=== PATIENT | male | born 2000 | race Caucasian/White ===

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

== ENCOUNTER 2019-09-19 11:30 | Inpatient (IN) | payer BC ==
[~2019-09-19] VITALS: Ht 175.3 cm; Wt 63.5 kg
[~2019-09-19 11:30] MED LIST changes: +OMEP1CAP73 PO; -OMEP20CA4 PO; -OMEP40CA2 PO; +OMEP40CA97 PO
[2019-09-19 12:06] LABS: HEMATOCRIT 45.6 % (42.0-52.0); HEMOGLOBIN 16.5 g/dl (13.5-17.5); MEAN CORPUSCULAR HEMOGLOBIN 29.5 pg (27.0-33.0); MEAN CORPUSCULAR HGB CONC 36.2 g/dl (32.0-36.5); MEAN CORPUSCULAR VOLUME 81.4 fl (80.0-96.0); PLATELET COUNT, AUTOMATED 368 10^3/uL (150-450)
[2019-09-19 12:36] LABS: ACETAMINOPHEN LEVEL < 2.0 UG/ML (10.0-30.0); ALBUMIN 4.7 GM/DL (3.2-5.2); ALT/SGPT 52 U/L (12-78); BILIRUBIN,DIRECT 0.4 MG/DL (0.0-0.2); BILIRUBIN,TOTAL 1.9 MG/DL (0.2-1.0); BLOOD UREA NITROGEN 15 MG/DL (7-18); CALCIUM LEVEL 9.7 MG/DL (8.5-10.1); CARBON DIOXIDE LEVEL 25 MEQ/L (21-32); CHLORIDE LEVEL 106 MEQ/L (98-107); CREATININE FOR GFR 1.39 MG/DL (0.70-1.30); ETHYL ALCOHOL (ETHANOL) < 0.003 % (0.000-0.010); GLUCOSE, FASTING 154 MG/DL (70-100); POTASSIUM SERUM 3.4 MEQ/L (3.5-5.1); SALICYLATE LEVEL < 1.7 MG/DL (5.0-30.0); SODIUM LEVEL 139 MEQ/L (136-145); TOTAL PROTEIN 7.9 GM/DL (6.4-8.2)
[2019-09-19 12:37] LABS: AMPHETAMINES LEVEL URINE NEGATIVE (NEGATIVE); BARBITURATES URINE NEGATIVE (NEGATIVE); BENZODIAZEPINES URINE NEGATIVE (NEGATIVE); CANNABINOIDS URINE NEGATIVE (NEGATIVE); COCAINE METABOLITE URINE NEGATIVE (NEGATIVE); METHADONE URINE NEGATIVE (NEGATIVE); OPIATES URINE NEGATIVE (NEGATIVE); PHENCYCLIDINE URINE NEGATIVE (NEGATIVE)
[2019-09-19 15:08] LABS: CPK CREATINE PHOSPHOKINASE 525 U/L (39-308)
[2019-09-19] MEDS ORDERED: MAALOX 30 ML SUSP *UDC PO PRN (16:45)
[2019-09-19] MEDS ORDERED: MOM 30ML SUSPENSION UDC PO PRN (16:45)
[2019-09-19] MEDS ORDERED: ACETAMINOPHEN TAB 650MG DOSE (2X325MG) PO PRN (16:45)
[2019-09-19 17:30] VITALS: BP 144/79
[2019-09-19] MEDS: LORazepam 0.5 MG TAB PO PRN (19:57)
[2019-09-20 06:22] VITALS: BP 108/57
[2019-09-20] MEDS ORDERED: SODIUM CHLORIDE NASAL 0.65% SPRAY BTL (OCEAN) PRN (11:30)
--- NOTE | 2019-09-20 11:36 | MHHPEPDOC ---
[facility] History & Physical History and Physical DATE OF ADMISSION: September 19, 2019 at 17:23 New Patient James Medrano MRN: N/A Date of : N/A Date of Service: 09/20/2019 Chief Complaint "I have things going on." History of Present Illness The patient, a 19-year-old man presents to [facility] after acting fairly bizarre and confused at his home manically talking at length. His mother brought him in. He was noted to be aggressive and manic and was admitted. The patient is met with. He is still quite manic and hyperverbal although amenable to trying some medications. He denies any substance use prior and rarely admits to his previous substance use. He feels that his substance use is continuing to be a problem even though he has stopped taking them. He is difficult to interview and the majority of his information is extracted from previous psychosocial. Review Of Systems Unable to obtain due to mental status. Past Psychiatric History He has a history of reported drug-induced psychosis in the past, last admitted several months ago. He had been tried on Invega, patient reports that it made him overly sedated. It is not connected with mental health at this time on no current mental health medications. No notable history of suicide attempts. Allergies Please see below. Family Psychiatric History Reports having a family history of substance abuse in the past. Social History Patient was born and raised in [place], moved to [place] at age 2 to be away from biologic father who was into drugs. Mom remarried, then . Currently lives with mother. Had graduated high school, had dropped out of college. No notable history of legal problems. He had been previously employed at [employer]. Substance Abuse History Has a history of hallucinogen stimulant use in the past, denies it recently. Negative tox screen on presentation. Medical History Patient has no significant past medical history. Mental Status Examination General: Well dressed with good hygiene Speech: hyperverbal Thought processes: Tangential MSK: Smooth and coordinated gait, no signs of tremors or involuntary orofacial movements Thought content: Bizarre Abstract reasoning, and computation: Mildly impaired Description of associations: [employer] Description of abnormal or psychotic thoughts: Has reported auditory hallucinations to nurses. Judgment: Limited Insight: Limited Orientation: Alert and orientated 3 Cognition: Grossly normal Recent and remote memory: Intact Attention span and concentration: Impaired secondary to thought process. Fund of knowledge: Adequate Mood: "okay" Affect: Euphoric and hyperverbal Diagnoses Unspecified bipolar disorder Potentially schizoaffective versus schizophrenia Stimulant use disorder, unspecified Hallucinogen use disorder, unspecified Assessment and Plan Unspecified bipolar disorder: Start patient on Abilify 5 mg with as needed Haldol and Ativan for agitation. The risks, benefits as well as common side effects as well as alternative treatments (including non-treatment) were discussed with the patient both in general and for their particular case. The patient selected this option out of a range. Stimulant/hallucinogen use disorder: Unclear if clinically relevant. Disposition Patient will need to be retained on an involuntary admission as he is still quite distorted and manic. Problem List Altered thoughts and perception. Initial Treatment Plan 1. Patient was admitted on a legal status. 2. Complete history was obtained. 3. With patients permission, family will be contacted and database will be expanded. 4. Patients medication regimen will be reviewed and changed accordingly. 5. Patient will be provided with protected environment. 6. Patient will be treated with individual, group, and milieu therapies. 7. Patient will receive supportive psych-education. 8. Discharge planning will commence immediately. 9. Outpatient follow-up treatment will be strongly recommended. 10. The initial treatment plan will focus initially on: Estimated Length Of Stay 4 days. Time Spent 70 minutes with greater than 50% of time spent on counseling/coordination of care Saturday Vital Signs Vital Signs Date Time Temp Pulse Resp B/P (MAP) Pulse Ox O2 Delivery O2 Flow Rate FiO2 09/20/19 06:22 97.5 66 14 108/57 (74) 100 Room Air Laboratory Data 24H Labs Laboratory Tests 2 09/19/19 11:53: Nucleated Red Blood Cells % (auto) 0.0, Anion Gap 8, Calcium Level 9.7, Total Bilirubin 1.9H, Direct Bilirubin 0.4H, Aspartate Amino Transf (AST/SGOT) 31, Alanine Aminotransferase (ALT/SGPT) 52, Alkaline Phosphatase 84, Total Creatine Kinase 525H, Total Protein 7.9, Albumin 4.7, Albumin/Globulin Ratio 1.47, T hyroid Stimulating Hormone (TSH) 2.400, Salicylates Level < 1.7L, Acetaminophen Level < 2.0L, Ethyl Alcohol Level < 0.003 09/19/19 12:00: Urine Opiates Screen NEGATIVE, Urine Methadone Screen NEGATIVE, Urine Barbiturates Screen NEGATIVE, Urine Phencyclidine Screen NEGATIVE, Urine Amphetamines Screen NEGATIVE, Urine Benzodiazepines Screen NEGATIVE, Urine Cocaine Metabolite Screen NEGATIVE, Urine Cannabinoids Screen NEGATIVE CBC/BMP Laboratory Tests 09/19/19 11:53 Medications No Active Prescriptions or Reported Meds Allergies Coded Allergies: Penicillins (Verified Allergy, Unknown, rash, 09/19/19) MARJ MEEKS DO September 20, 2019 11:36
[2019-09-20 12:11] LABS: HEMATOCRIT 43.9 % (42.0-52.0); HEMOGLOBIN 15.7 g/dl (13.5-17.5); MEAN CORPUSCULAR HEMOGLOBIN 29.7 pg (27.0-33.0); MEAN CORPUSCULAR HGB CONC 35.8 g/dl (32.0-36.5); PLATELET COUNT, AUTOMATED 319 10^3/uL (150-450); RED BLOOD COUNT 5.29 10^6/uL (4.30-6.10)
--- NOTE | 2019-09-20 12:30 | CR.PDOC ---
General Date of Consultation: September 20, 2019 Referring Provider: MARJ MEEKS DO Consultation REASON FOR CONSULTATION/CHIEF COMPLAINT: medical management HISTORY OF PRESENT ILLNESS: Patient is a 19-yoM with PMH pericarditis, seasonal allergies, deviated septum, status post rhinoplasty, presenting with SI. He reports possible diagnosis of ADHD in the past, without medication treatment. Hospitalist team consulted for medical management. Today, he does report slight headache with vision changes. He wore opticals in the past, however, has not had a follow-up with optometry. He does report chest pain and shortness of breath upon anxiety attack when first admitted, which has subsequently resolved. He also reports nausea without vomiting, decreased by mouth intake. Last meal was last night. He denies any fevers, chills, cough, abdominal pain, issues with voiding or stooling, no dysuria, no new rashes. ROS: 10 point review systems negative except per above. PMH: See above. PSH: See above, rhinoplasty Family history: Reviewed and noncontributory. Social history: former smoker,denies ETOH, or ilicits Medications: Reviewed Allergies: pcn (pt not aware, reports NKDA) PHYSICAL EXAMINATION: VITAL SIGNS: Please see below. GENERAL: No distress HEENT: Normocephalic, atraumatic, moist mucous membranes NECK: Supple CARDIOVASCULAR EXAMINATION: S1, S2, no murmurs RESPIRATORY EXAMINATION: CTAB ABDOMINAL EXAMINATION: Soft, nontender, nondistended, positive bowel sounds EXTREMITIES: no edema SKIN: No rash NEUROLOGICAL EXAMINATION: awake PSYCHIATRIC EXAMINATION: Calm and cooperative, appears anxious Assessment and plan: Patient is a 19-yoM with PMH pericarditis, seasonal allergies, deviated septum, status post rhinoplasty, presenting with SI, no HI. #SI/mood disorder: Well defer to primary team on management. #Vision changes, recommendations for outpatient follow-up to optometry versus ophthalmology, likely contributing to headache, okay to continue Tylenol when necessary for now. #Allergies, with a history of deviated septum, status post rhinoplasty: Well continue home cetirizine 10 mg daily, [place] nasal spray when necessary #MARCO A: likely secondary to dehydration, encourage by mouth intake #hypokalemia: likely secondary to dehydration, encourage by mouth intake, will monitor, obtain repeat BMP and a niece in level for evaluation #leukocytosis: Likely secondary to stress reaction, unlikely infection, well repeat and monitor DVT PPx: Frequent ambulation Full code. Thank you for the consult. Vital Signs/I&O Vital Signs Date Time Temp Pulse Resp B/P (MAP) Pulse Ox O2 Delivery O2 Flow Rate FiO2 09/20/19 06:22 97.5 66 14 108/57 (74) 100 Room Air Laboratory Data Labs 24H Laboratory Tests 2 09/19/19 11:53: Nucleated Red Blood Cells % (auto) 0.0, Anion Gap 8, Calcium Level 9.7, Total Bilirubin 1.9H, Direct Bilirubin 0.4H, Aspartate Amino Transf (AST/SGOT) 31, Alanine Aminotransferase (ALT/SGPT) 52, Alkaline Phosphatase 84, Total Creatine Kinase 525H, Total Protein 7.9, Albumin 4.7, Albumin/Globulin Ratio 1.47, Thyroid Stimulating Hormone (TSH) 2.400, Salicylates Level < 1.7L, Acetaminophen Level < 2.0L, Ethyl Alcohol Level < 0.003 09/19/19 12:00: Urine Opiates Screen NEGATIVE, Urine Methadone Screen NEGATIVE, Urine Barbiturates Screen NEGATIVE, Urine Phencyclidine Screen NEGATIVE, Urine Amphetamines Screen NEGATIVE, Urine Benzodiazepines Screen NEGATIVE, Urine Cocaine Metabolite Screen NEGATIVE, Urine Cannabinoids Screen NEGATIVE CBC/BMP Laboratory Tests 09/19/19 11:53 Allergies Coded Allergies: Penicillins (Verified Allergy, Unknown, rash, 09/19/19) Home Medications No Active Prescriptions or Reported Meds SHASHANK GONCALVES MD September 20, 2019 11:19
[2019-09-20 12:32] LABS: BLOOD UREA NITROGEN 12 MG/DL (7-18); CALCIUM LEVEL 8.9 MG/DL (8.5-10.1); CARBON DIOXIDE LEVEL 26 MEQ/L (21-32); CHLORIDE LEVEL 105 MEQ/L (98-107); CREATININE FOR GFR 0.95 MG/DL (0.70-1.30); GLUCOSE, FASTING 98 MG/DL (70-100); MAGNESIUM LEVEL 2.3 MG/DL (1.8-2.4); SODIUM LEVEL 139 MEQ/L (136-145)
[2019-09-20] MEDS: LORazepam 0.5 MG TAB PO PRN ×2 (12:56→18:24)
[2019-09-20] MEDS: CETIRIZINE (ZyrTEC) 10 MG TAB PO SCH (12:56)
[2019-09-20 15:35] VITALS: BP 117/56
[2019-09-20] MEDS: haloperidoL 5 MG TAB PO PRN (18:56)
[2019-09-20] MEDS: traZODone 50 MG TAB PO PRN (21:23)
[2019-09-21 06:32] VITALS: BP 122/60
[2019-09-21] MEDS: CETIRIZINE (ZyrTEC) 10 MG TAB PO SCH (08:08)
[2019-09-21] MEDS: haloperidoL 5 MG TAB PO PRN (08:09)
--- NOTE | 2019-09-21 09:52 | MHIPNPDOC ---
[facility] Progress Note Progress Note Inpatient Progress Note James Medrano MRN: N/A Date of : N/A Date of Service: 09/21/2019 History of Present Illness The patient, a 19-year-old man presents to [facility] after acting fairly bizarre and confused at his home manically talking at length. His mother brought him in. He was noted to be aggressive and manic and was admitted. The patient is met with. He is still quite manic and hyperverbal although amenable to trying some medications. He denies any substance use prior and rarely admits to his previous substance use. He feels that his substance use is continuing to be a problem even though he has stopped taking them. He is difficult to interview and the majority of his information is extracted from previous psychosocial. Interval History The patient is unable to be met with today, as he was sedated from taking Haldol this morning due to increased anxiety. He is notably had increased anxiety, but no major behavioral problems. Review Of Systems Patient sedated. Psychotherapy None on this visit. Vital Signs Reviewed. Mental Status Examination Patient is too sedated to meet. Diagnoses Unspecified bipolar disorder Potentially schizoaffective versus schizophrenia Stimulant use disorder, unspecified Hallucinogen use disorder, unspecified Assessment and Plan Unspecified bipolar disorder: Continue Abilify 5 mg nightly. The risks, benefits as well as common side effects as well as alternative treatments (including non-treatment) were discussed with the patient both in general and for their particular case. The patient selected this option out of a range. Stimulant/hallucinogen use disorder: Unclear if clinically relevant. Disposition Patient will need further inpatient admission in order to treat his severely impairing psychosis and pauline. Time Spent 15 minutes Saturday Vital Signs Vital Signs Date Time Temp Pulse Resp B/P (MAP) Pulse Ox O2 Delivery O2 Flow Rate FiO2 09/21/19 06:32 98.3 75 12 122/60 (80) 96 Room Air Laboratory Data 24H Labs Laboratory Tests 2 09/20/19 11:53: Nucleated Red Blood Cells % (auto) 0.0, Anion Gap 8, Calcium Level 8.9, Magnesium Level 2.3 CBC/BMP Laboratory Tests 09/20/19 11:53 Current Medications Current Medications Medications (Trade) Dose Ordered Sig/Rani Route PRN Reason Start Time Stop Time Status Last Admin Dose Admin Acetaminophen (Tylenol Tab) 650 mg Q6HP PRN PO HEADACHE or DISCOMFORT 09/19/19 16:45 Al Hydrox/Mg Hydrox/Simethicone (Mylanta) 30 ml Q4HP PRN PO HEARTBURN/INDIGESTION 09/19/19 16:45 Aripiprazole (AbiLIFY) 5 mg QHS PO 09/20/19 21:00 09/20/19 21:23 Cetirizine HCl (ZyrTEC) 10 mg DAILY PO 09/20/19 09:00 09/21/19 08:08 Haloperidol (Haldol) 5 mg Q4HP PRN PO AGITATION 09/19/19 18:45 09/21/19 08:09 Home Med (Med Rec Complete!) ASDIRECTED XX 09/19/19 14:00 09/19/19 14:06 DC Lorazepam (Ativan) 0.5 mg Q4HP PRN PO ANXIETY 09/19/19 18:45 09/20/19 18:24 Magnesium Hydroxide (Milk Of Magnesia) 30 ml DAILYPRN PRN PO CONSTIPATION 09/19/19 16:45 Sodium Chloride ([place] Nasal [place]) 2 spray Q2HP PRN NA NASAL DRYNESS 09/20/19 11:30 Trazodone HCl (Desyrel) 50 mg QHSP PRN PO INSOMNIA 09/19/19 16:45 09/20/19 21:23 Allergies Coded Allergies: Penicillins (Verified Allergy, Unknown, rash, 09/19/19) MARJ MEEKS DO September 21, 2019 09:52
--- NOTE | 2019-09-21 10:34 | IPNPDOC ---
Date Seen The patient was seen on 09/21/19. Progress Note SUBJECTIVE: No o/n issues, vision and allergies controlled. OBJECTIVE PHYSICAL EXAMINATION: PHYSICAL EXAMINATION: VITAL SIGNS: Please see below. GENERAL: No distress HEENT: Normocephalic, atraumatic, moist mucous membranes NECK: Supple CARDIOVASCULAR EXAMINATION: S1, S2, no murmurs RESPIRATORY EXAMINATION: CTAB ABDOMINAL EXAMINATION: Soft, nontender, nondistended, positive bowel sounds EXTREMITIES: no edema SKIN: No rash NEUROLOGICAL EXAMINATION: awake PSYCHIATRIC EXAMINATION: Calm and cooperative, appears anxious Assessment and plan: Patient is a 19-yoM with PMH pericarditis, seasonal allergies, deviated septum, status post rhinoplasty, presenting with SI, no HI. #SI/mood disorder: Well defer to primary team on management. #Vision changes, recommendations for outpatient follow-up to optometry versus ophthalmology, likely contributing to headache, okay to continue Tylenol when necessary for now. #Allergies, with a history of deviated septum, status post rhinoplasty: Well continue home cetirizine 10 mg daily, [place] nasal spray when necessary #MARCO A: likely secondary to dehydration, encourage by mouth intake -resolved #hypokalemia: likely secondary to dehydration, encourage by mouth intake, will monitor, obtain repeat BMP and a niece in level for evaluation -resolved #leukocytosis: Likely secondary to stress reaction, unlikely infection, well repeat and monitor -resolved DVT PPx: Frequent ambulation Full code. Will sign off at this time, please reconsult if issues arise. VS, I&O, 24H, Fishbone Vital Signs/I&O Vital Signs Date Time Temp Pulse Resp B/P (MAP) Pulse Ox O2 Delivery O2 Flow Rate FiO2 09/21/19 06:32 98.3 75 12 122/60 (80) 96 Room Air Laboratory Data 24H LABS Laboratory Tests 2 09/20/19 11:53: Nucleated Red Blood Cells % (auto) 0.0, Anion Gap 8, Calcium Level 8.9, Magnesium Level 2.3 CBC/BMP Laboratory Tests 09/20/19 11:53 SHASHANK GONCALVES MD September 21, 2019 10:34
[2019-09-21 16:42] VITALS: BP 114/63
[2019-09-21] MEDS: traZODone 50 MG TAB PO PRN (21:18)
[2019-09-22 06:25] VITALS: BP 132/61
[2019-09-22] MEDS: CETIRIZINE (ZyrTEC) 10 MG TAB PO SCH (08:11)
[2019-09-22] MEDS: haloperidoL 5 MG TAB PO PRN ×2 (08:11→20:40)
--- NOTE | 2019-09-22 09:23 | MHIPNPDOC ---
[facility] Progress Note Progress Note Inpatient Progress Note James Medrano MRN: N/A Date of : N/A Date of Service: 09/22/2019 History of Present Illness The patient, a 19-year-old man presents to [facility] after acting fairly bizarre and confused at his home manically talking at length. His mother brought him in. He was noted to be aggressive and manic and was admitted. The patient is met with. He is still quite manic and hyperverbal although am enable to trying some medications. He denies any substance use prior and rarely admits to his previous substance use. He feels that his substance use is continuing to be a problem even though he has stopped taking them. He is difficult to interview and the majority of his information is extracted from previous psychosocial. Interval History Patient is met with today. He reports he is doing better, but has been sedated. Yesterday, he stated he took Haldol due to his increasing anxiety. He reports his thoughts become racing and that he cannot even describe them. He reports that he is tolerating the Abilify well, but still has difficulty controlling his moods and his fears. Review Of Systems Reports no physical symptoms at this time. Psychotherapy None on this visit. Vital Signs Reviewed. Mental Status Examination Patient is too sedated to meet. General: Well dressed with good hygiene Speech: More fluid. Thought processes: More linear. MSK: Smooth and coordinated gait, no signs of tremors or involuntary orofacial movements Thought content: Less paranoid. Abstract reasoning, and computation: Intact Description of associations: Intact Description of abnormal or psychotic thoughts: Denies any suicidal or homicidal ideation. Denies any auditory or visual hallucinations. Does not appear to be responding to internal stimuli. Does not appear to be endorsing any bizarre or paranoid ideation. Judgment: Improved. Insight: Improved. Orientation: Alert and orientated 3 Cognition: Grossly normal Recent and remote memory: Intact Attention span and concentration: Intact Fund of knowledge: Adequate Mood: "okay" Affect: More euthymic Diagnoses Unspecified bipolar disorder Potentially schizoaffective versus schizophrenia Stimulant use disorder, unspecified Hallucinogen use disorder, unspecified Assessment and Plan Unspecified bipolar disorder: Increase Abilify to 10 mg nightly. Stimulant/hallucinogen use disorder: Unclear if clinically relevant. Disposition Patient will need further inpatient admission in order to treat his severely impairing psychosis and pauline. Time Spent 15 minutes. Saturday Vital Signs Vital Signs Date Time Temp Pulse Resp B/P (MAP) Pulse Ox O2 Delivery O2 Flow Rate FiO2 09/22/19 06:25 97.9 95 12 132/61 (84) Room Air 09/21/19 06:32 96 Current Medications Current Medications Medications (Trade) Dose Ordered Sig/Rani Route PRN Reason Start Time Stop Time Status Last Admin Dose Admin Acetaminophen (Tylenol Tab) 650 mg Q6HP PRN PO HEADACHE or DISCOMFORT 09/19/19 16:45 09/21/19 16:21 Al Hydrox/Mg Hydrox/Simethicone (Mylanta) 30 ml Q4HP PRN PO HEARTBURN/INDIGESTION 09/19/19 16:45 Aripiprazole (AbiLIFY) 5 mg QHS PO 09/20/19 21:00 09/21/19 21:17 Cetirizine HCl (ZyrTEC) 10 mg DAILY PO 09/20/19 09:00 09/22/19 08:11 Haloperidol (Haldol) 5 mg Q4HP PRN PO AGITATION 09/19/19 18:45 09/22/19 08:11 Home Med (Med Rec Complete!) ASDIRECTED XX 09/19/19 14:00 09/19/19 14:06 DC Lorazepam (Ativan) 0.5 mg Q4HP PRN PO ANXIETY 09/19/19 18:45 09/20/19 18:24 Magnesium Hydroxide (Milk Of Magnesia) 30 ml DAILYPRN PRN PO CONSTIPATION 09/19/19 16:45 Sodium Chloride ([place] Nasal [place]) 2 spray Q2HP PRN NA NASAL DRYNESS 09/20/19 11:30 Trazodone HCl (Desyrel) 50 mg QHSP PRN PO INSOMNIA 09/19/19 16:45 09/21/19 21:18 Allergies Coded Allergies: Penicillins (Verified Allergy, Unknown, rash, 09/19/19) MARJ MEEKS DO September 22, 2019 09:23
[2019-09-22 16:04] VITALS: BP 114/59
[2019-09-22] MEDS: ARIPiprazole 10 MG TAB PO SCH (20:24)
[2019-09-22] MEDS: traZODone 50 MG TAB PO PRN (21:23)
[2019-09-23 06:30] VITALS: BP 124/59
[2019-09-23] MEDS: CETIRIZINE (ZyrTEC) 10 MG TAB PO SCH (08:16)
--- NOTE | 2019-09-23 10:00 | MHIPNPDOC ---
[facility] Progress Note Progress Note Inpatient Progress Note James Medrano MRN: N/A Date of : N/A Date of Service: 09/23/2019 History of Present Illness The patient, a 19-year-old man presents to [facility] after acting fairly bizarre and confused at his home manically talking at length. His mother brought him in. He was noted to be aggressive and manic and was admitted. The patient is met with. He is still quite manic and hyperverbal although a menable to trying some medications. He denies any substance use prior and rarely admits to his previous substance use. He feels that his substance use is continuing to be a problem even though he has stopped taking them. He is difficult to interview and the majority of his information is extracted from previous psychosocial. Interval History The patient is met with today. He is making good progress and had been given his Abilify shot. He reports that he is doing much better on the Abilify 10 or needing some Haldol from time to time. He reports feeling much improved and has been engaging well on treatment. He has had no major behavioral problems and generally has been making progress. Information had been gathered from a source reporting a history of cardiovascular problems in the past. However, the patient reports that he has not had any particular problems other than some unspecified problems when he was younger. Review Of Systems General: Denies fever or appetite changes Cardiovascular: Denies Chest pain or palpations GI: Denies Nausea, vomiting, or bowel changes Respiratory: Denies shortness of breath or cough Neuro: Denies dizziness, tremors Derm: Denies any rashes or pruritus : Denies any dysuria or urinary problems MSK: Denies any muscle tightness or stiffness HEENT: Denies any vision changes or headaches Psychotherapy None on this visit. Vital Signs Reviewed. Mental Status Examination General: Well dressed with good hygiene Speech: More fluid. Thought processes: Linear. MSK: Smooth and coordinated gait, no signs of tremors or involuntary orofacial movements Thought content: Future oriented. Abstract reasoning, and computation: Intact Description of associations: Intact Description of abnormal or psychotic thoughts: Denies any suicidal or homicidal ideation. Denies any auditory or visual hallucinations. Does not appear to be responding to internal stimuli. Does not appear to be endorsing any bizarre or paranoid ideation. Judgment: Improved. Insight: Improved. Orientation: Alert and orientated 3 Cognition: Grossly normal Recent and remote memory: Intact Attention span and concentration: Intact Fund of knowledge: Adequate Mood: "okay" Affect: More euthymic Diagnoses Unspecified bipolar disorder Potentially schizoaffective versus schizophrenia Stimulant use disorder, unspecified Hallucinogen use disorder, unspecified Assessment and Plan Unspecified bipolar disorder: Continue Abilify 10 mg nightly. Abilify Maintena 400 mg given. Stimulant/hallucinogen use disorder: Unclear if clinically relevant. Disposition Discharge tomorrow if patient continues to improve and demonstrates no significant problems. Time Spent 15 minutes. Saturday Vital Signs Vital Signs Date Time Temp Pulse Resp B/P (MAP) Pulse Ox O2 Delivery O2 Flow Rate FiO2 09/23/19 06:30 98.8 88 12 124/59 (80) 09/22/19 06:25 Room Air 09/21/19 06:32 96 Current Medications Current Medications Medications (Trade) Dose Ordered Sig/Rani Route PRN Reason Start Time Stop Time Status Last Admin Dose Admin Acetaminophen (Tylenol Tab) 650 mg Q6HP PRN PO HEADACHE or DISCOMFORT 09/19/19 16:45 09/21/19 16:21 Al Hydrox/Mg Hydrox/Simethicone (Mylanta) 30 ml Q4HP PRN PO HEARTBURN/INDIGESTION 09/19/19 16:45 Aripiprazole (AbiLIFY) 5 mg QHS PO 09/20/19 21:00 09/22/19 11:07 DC 09/21/19 21:17 Aripiprazole (AbiLIFY) 10 mg QHS PO 09/22/19 21:00 09/22/19 20:24 Cetirizine HCl (ZyrTEC) 10 mg DAILY PO 09/20/19 09:00 09/23/19 08:16 Haloperidol (Haldol) 5 mg Q4HP PRN PO AGITATION 09/19/19 18:45 09/22/19 20:40 Home Med (Med Rec Complete!) ASDIRECTED XX 09/19/19 14:00 09/19/19 14:06 DC Lorazepam (Ativan) 0.5 mg Q4HP PRN PO ANXIETY 09/19/19 18:45 09/20/19 18:24 Magnesium Hydroxide (Milk Of Magnesia) 30 ml DAILYPRN PRN PO CONSTIPATION 09/19/19 16:45 Sodium Chloride ([place] Nasal [place]) 2 spray Q2HP PRN NA NASAL DRYNESS 09/20/19 11:30 Trazodone HCl (Desyrel) 50 mg QHSP PRN PO INSOMNIA 09/19/19 16:45 09/22/19 21:23 Allergies Coded Allergies: Penicillins (Verified Allergy, Unknown, rash, 09/19/19) MARJ MEEKS DO September 23, 2019 10:00
[2019-09-23] MEDS ORDERED: VARENICLINE 0.5 MG TABLET PO ONE (11:00)
[2019-09-23] MEDS: haloperidoL 5 MG TAB PO PRN (11:40)
[2019-09-23] MEDS: PILL CUTTER 1 EACH XX PRN (11:40)
[2019-09-23] MEDS ORDERED: ARIPiprazole MONOHYDRATE 400 MG INJ (ABILIFY) IM ONE (13:00)
[2019-09-23 16:04] VITALS: BP 117/58
[2019-09-23] MEDS: traZODone 50 MG TAB PO PRN (20:15)
[2019-09-23] MEDS: ARIPiprazole 10 MG TAB PO SCH (20:15)
[2019-09-24] MEDS: LORazepam 0.5 MG TAB PO PRN (00:48)
[2019-09-24 06:37] VITALS: BP 129/82
[2019-09-24] MEDS: CETIRIZINE (ZyrTEC) 10 MG TAB PO SCH (08:08)
[2019-09-24] MEDS ORDERED: VARENICLINE 0.5 MG TABLET PO SCH (09:00)
--- NOTE | 2019-09-24 09:54 | MHDSPDOC ---
[facility] Discharge Summary Discharge Summary DATE OF ADMISSION: September 19, 2019 at 17:23 DATE OF DISCHARGE: 09/24/2019 Discharge Jamse Medrano MRN: N/A Date of : N/A Date of Service: 09/24/2019 Diagnoses Unspecified bipolar disorder Potentially schizoaffective versus schizophrenia Stimulant use disorder, unspecified Hallucinogen use disorder, unspecified History of Present Illness The patient, a 19-year-old man presents to [facility] after acting fairly bizarre and confused at his home manically talking at length. His mother brought him in. He was noted to be aggressive and manic and was admitted. The patient is met with. He is still quite manic and hyperverbal although amenable to trying some medications. He denies any substance use prior and rarely admits to his previous substance use. He feels that his substance use is continuing to be a problem even though he has stopped taking them. He is difficult to interview and the majority of his information is extracted from previous psychosocial. Consultants Involved Hospitalist/PCP screening Treatment and Progress On The Unit The patient was admitted to the inpatient mental health unit. He was initially tried on Abilify 5 mg, increased to 10 mg of the positive effects. He needed some PRN Haldol and Ativan at times for anxiety, but rapidly made progress. He requested Chantix to help with smoking cessation and tolerated his first dose well without any problems. He did not have much aggression or other problems other than his initial manic problems in which he was quite intrusive when he first arrived. These arrived well and he became friendly and amenable and much more socially appropriate. He was given Abilify 400 mg and a discharge plan was created. Discharge Assessment 19-year-old man with a history of drug use, however, no recent drug use prior to his psychotic episode presents likely demonstrating signs of bipolar disorder. He is treated with an appropriate agent and put on a long-acting injectable. His cholesterol is normal and his EKG is normal as well on discharge. The patient at the time of discharge did not meet criteria for involuntary admission/extension due to having a normal mental status exam, fair insight into the situation, They are engaged in the discharge process, as well as being friendly and amenable in behavioral control and havent been engaging in any observed concerning behavior or ideation recently. They decline voluntary extension/admission at this time and must be discharged in good rafaela, as Im unable to make a case for holding the patient against their will. They may have historical risk factors of admissions and other interactions with psychiatry however, those are not modifiable from a clinical perspective. The patient will need to be discharged in good rafaela. on discharge Mental Status Examination General: Well dressed with good hygiene Speech: Spontaneous and fluid Thought processes: Linear and logical MSK: Smooth and coordinated gait, no signs of tremors or involuntary orofacial m ovements Thought content: Future orientated Abstract reasoning, and computation: Intact Description of associations: Intact Description of abnormal or psychotic thoughts: Denies any suicidal or homicidal ideation. Denies any auditory or visual hallucinations. Does not appear to be responding to internal stimuli. Does not appear to be endorsing any bizarre or paranoid ideation. Judgment: fair Insight: fair Orientation: Alert and orientated 3 Cognition: Grossly normal Recent and remote memory: Intact Attention span and concentration: Intact Fund of knowledge: Adequate Mood: "okay" Affect: Euthymic with a full range Follow Up The social work team worked during the predischarge meeting in order to evaluate for further issues of lethality address them fully before discharge. They worked on safety planning with the patient's family members in order to ensure that the patient will have a safe and effective discharge. Time Spent The amount of time spent in the coordination of care for this patient was approximately 45 minutes. Vital Signs/I&Os Vital Signs Date Time Temp Pulse Resp B/P (MAP) Pulse Ox O2 Delivery O2 Flow Rate FiO2 09/24/19 06:37 96.9 87 12 129/82 (98) 09/22/19 06:25 Room Air 09/21/19 06:32 96 Laboratory Data Labs 24H Laboratory Tests 2 09/24/19 09:31: Medications Scheduled Aripiprazole (Abilify) 10 Mg Tablet, 10 MG PO QHS for mood for 7 Days, #7 Aripiprazole (Abilify Maintena) 400 Mg Suser.syr, 400 MG IM Q4WKS for thought for 28 Days, #400 injection next on 10/24/19 Varenicline (Chantix) 0.5 Mg Tablet, 0.5 MG PO DAILY for tobacco for 7 Days, #7 Allergies Coded Allergies: Penicillins (Verified Allergy, Unknown, rash, 09/19/19) MARJ MEEKS DO September 24, 2019 09:54
[2019-09-24] MEDS ORDERED: ABIL1INJ2 IM (10:17)
[2019-09-24] MEDS ORDERED: VARE05TA PO (10:17)
[2019-09-24] MEDS ORDERED: ABIL10TA9 PO (10:17)
[2019-09-24 10:27] LABS: CHOLESTEROL RISK RATIO 3.268 (<5)
[2019-09-24] MEDS: haloperidoL 5 MG TAB PO PRN (12:37)
[2019-09-24] MEDS: PILL CUTTER 1 EACH XX PRN (12:37)
--- NOTE | 2019-09-24 18:17 | ECGEPIP ---
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
== END 2019-09-24 13:50 | disposition home or self-care (01) | DRG 753 ==
LOC: M ED 11:30 → M PSY 17:23
PROVIDERS: ADMIT Psychiatry & Neurology Addiction Medicine; ATTEND Psychiatry & Neurology Addiction Medicine
DX: F31.9 Bipolar disorder, unspecified (principal); N17.9 Acute kidney failure, unspecified; F25.9 Schizoaffective disorder, unspecified; F16.10 Hallucinogen abuse, uncomplicated; F15.10 Other stimulant abuse, uncomplicated; R51 Headache; H53.9 Unspecified visual disturbance; E87.6 Hypokalemia; E86.0 Dehydration; Z88.0 Allergy status to penicillin

== ENCOUNTER → 2020-07-02 | Outpatient (CLI) | payer MEDICAID, OTHER ==
[~2020-07-02] MED LIST changes: +ABIL10TA9 PO; +ABIL1INJ2 IM; +RISP-8 PO; -RISP1TAB3 PO; +VARE05TA PO
== END ==
LOC: M LABSMTC 08:27
PROVIDERS: ATTEND Family Medicine
DX: Z20.822 Contact with and (suspected) exposure to COVID-19 (principal)

== ENCOUNTER 2021-04-15 11:26 | Inpatient (IN) | payer MEDICAID, OTHER ==
[~2021-04-15] VITALS: Ht 180.3 cm; Wt 66.0 kg
[~2021-04-15 11:26] MED LIST changes: +OMEP40CA4 PO; -OMEP40CA97 PO
[2021-04-15] MEDS ORDERED: ESTR1TAB PO (11:37)
[2021-04-15] MEDS ORDERED: SPIR50TA4 PO (11:37)
[2021-04-15] MEDS ORDERED: PROG1CAP8 PO (11:37)
[2021-04-15 12:50] LABS: HEMATOCRIT 38.3 % (42.0-52.0); HEMOGLOBIN 13.5 g/dl (13.5-17.5); MEAN CORPUSCULAR HEMOGLOBIN 29.7 pg (27.0-33.0); MEAN CORPUSCULAR HGB CONC 35.2 g/dl (32.0-36.5); MEAN CORPUSCULAR VOLUME 84.2 fl (80.0-96.0); PLATELET COUNT, AUTOMATED 369 10^3/uL (150-450); RED BLOOD COUNT 4.55 10^6/uL (4.30-6.10); WHITE BLOOD COUNT 11.7 10^3/uL (4.0-10.0)
[2021-04-15 13:25] LABS: ACETAMINOPHEN LEVEL < 2.0 UG/ML (10.0-30.0); ALBUMIN 4.2 GM/DL (3.2-5.2); ALT/SGPT 30 U/L (12-78); BILIRUBIN,DIRECT 0.2 MG/DL (0.0-0.2); BILIRUBIN,TOTAL 0.7 MG/DL (0.2-1.0); BLOOD UREA NITROGEN 9 MG/DL (7-18); CALCIUM LEVEL 8.8 MG/DL (8.5-10.1); CARBON DIOXIDE LEVEL 22 MEQ/L (21-32); CHLORIDE LEVEL 111 MEQ/L (98-107); CREATININE FOR GFR 0.79 MG/DL (0.70-1.30); ETHYL ALCOHOL (ETHANOL) 0.004 % (0.000-0.010); GLOMERULAR FILTRATION RATE > 60.0 (>60); GLUCOSE, FASTING 103 MG/DL (70-100); POTASSIUM SERUM 4.1 MEQ/L (3.5-5.1); SALICYLATE LEVEL < 1.7 MG/DL (5.0-30.0); SODIUM LEVEL 140 MEQ/L (136-145); THYROID STIMULATING HORMONE 0.565 uIU/ML (0.358-3.740); TOTAL PROTEIN 7.4 GM/DL (6.4-8.2)
[2021-04-15 13:45] LABS: AMPHETAMINES LEVEL URINE NEGATIVE (NEGATIVE); BARBITURATES URINE NEGATIVE (NEGATIVE); BENZODIAZEPINES URINE NEGATIVE (NEGATIVE); CANNABINOIDS URINE POSITIVE (NEGATIVE); COCAINE METABOLITE URINE NEGATIVE (NEGATIVE); METHADONE URINE NEGATIVE (NEGATIVE); OPIATES URINE NEGATIVE (NEGATIVE); PHENCYCLIDINE URINE NEGATIVE (NEGATIVE)
[2021-04-15] MEDS ORDERED: LORazepam 2 MG TAB PO ONE (17:45)
[2021-04-15] MEDS ORDERED: ABIL1INJ2 IM (18:27)
[2021-04-15] MEDS ORDERED: HOME MED LIST COMPLETE! XX SCH (18:30)
[2021-04-16] MEDS ORDERED: LORazepam 2 MG TAB PO ONE ×2 (10:20→20:00)
[2021-04-16] MEDS: estradioL 1 MG TAB PO SCH ×2 (10:28→20:14)
[2021-04-16] MEDS: SPIRONOLACTONE 50 MG TAB PO SCH ×2 (10:29→20:13)
[2021-04-16] MEDS ORDERED: NICOTINE 7 MG/24 HR TRANSDERMAL TD ONE (10:35)
[2021-04-16] MEDS: PROGESTERONE 100 MG PO SCH (16:24)
[2021-04-16 18:00] LABS: RSV AMPLIFICATION NEGATIVE (NEGATIVE)
[2021-04-16] MEDS ORDERED: ARIPiprazole MONOHYDRATE 400 MG INJ (ABILIFY) IM ONE (18:00)
[2021-04-17] MEDS: PROGESTERONE 100 MG PO SCH (09:27)
[2021-04-17] MEDS: SPIRONOLACTONE 50 MG TAB PO SCH (09:28)
[2021-04-17] MEDS: estradioL 1 MG TAB PO SCH (09:28)
[2021-04-17] MEDS ORDERED: ACETAMINOPHEN TAB 650MG DOSE (2X325MG) PO PRN (18:35)
[2021-04-17] MEDS ORDERED: MAALOX 30 ML SUSP *UDC PO PRN (18:35)
[2021-04-17] MEDS ORDERED: MOM 30ML SUSPENSION UDC PO PRN (18:35)
[2021-04-17] MEDS ORDERED: LORazepam 1 MG TAB PO ONE (20:45)
[2021-04-18 01:17] VITALS: BP 121/74
[2021-04-18] MEDS: SPIRONOLACTONE 50 MG TAB PO SCH ×3 (01:50→20:22)
[2021-04-18] MEDS: estradioL 1 MG TAB PO SCH ×3 (01:50→20:22)
[2021-04-18] MEDS: traZODone 50 MG TAB PO PRN ×2 (01:51→20:22)
[2021-04-18 06:38] VITALS: BP 116/56
[2021-04-18] MEDS: NICOTINE 14 MG/24 HR TRANSDERMAL TD SCH (09:13)
[2021-04-18] MEDS: PROGESTERONE 100 MG PO SCH (09:14)
[2021-04-18] MEDS: OLANZapine ORAL DISINTEGRATING TAB 5MG PO PRN (11:54)
[2021-04-18 12:46] LABS: CHOLESTEROL RISK RATIO 2.857 (<5)
[2021-04-18 16:24] VITALS: BP 138/79
[2021-04-19 06:46] VITALS: BP 116/56
[2021-04-19] MEDS: PROGESTERONE 100 MG PO SCH (08:53)
[2021-04-19] MEDS: estradioL 1 MG TAB PO SCH ×2 (08:54→21:12)
[2021-04-19] MEDS: SPIRONOLACTONE 50 MG TAB PO SCH ×2 (08:54→21:12)
[2021-04-19] MEDS: NICOTINE 14 MG/24 HR TRANSDERMAL TD SCH (08:55)
[2021-04-19] MEDS: OLANZapine ORAL DISINTEGRATING TAB 5MG PO PRN ×2 (09:12→21:11)
[2021-04-19 16:11] VITALS: BP 140/70
[2021-04-19] MEDS: hydrOXYzine 50 MG TAB PO PRN (16:49)
[2021-04-19] MEDS: traZODone 50 MG TAB PO PRN (23:04)
[2021-04-20 06:20] VITALS: BP 129/64
[2021-04-20] MEDS: PROGESTERONE 100 MG PO SCH (08:23)
[2021-04-20] MEDS: estradioL 1 MG TAB PO SCH ×2 (08:23→21:58)
[2021-04-20] MEDS: SPIRONOLACTONE 50 MG TAB PO SCH ×2 (08:24→21:56)
[2021-04-20] MEDS: NICOTINE 14 MG/24 HR TRANSDERMAL TD SCH (08:25)
[2021-04-20] MEDS: hydrOXYzine 50 MG TAB PO PRN (10:42)
[2021-04-20 17:50] VITALS: BP 124/71
[2021-04-20] MEDS: traZODone 50 MG TAB PO PRN (21:58)
[2021-04-21 07:01] VITALS: BP 109/67
[2021-04-21] MEDS: estradioL 1 MG TAB PO SCH ×2 (08:26→21:07)
[2021-04-21] MEDS: NICOTINE 14 MG/24 HR TRANSDERMAL TD SCH (08:26)
[2021-04-21] MEDS: PROGESTERONE 100 MG PO SCH (08:26)
[2021-04-21] MEDS: SPIRONOLACTONE 50 MG TAB PO SCH ×2 (08:27→21:07)
[2021-04-21 16:49] VITALS: BP 136/81
[2021-04-21] MEDS: hydrOXYzine 50 MG TAB PO PRN (16:59)
[2021-04-21] MEDS: traZODone 50 MG TAB PO PRN (21:07)
[2021-04-22 06:12] VITALS: BP 134/68
[2021-04-22] MEDS: PROGESTERONE 100 MG PO SCH (08:23)
[2021-04-22] MEDS: SPIRONOLACTONE 50 MG TAB PO SCH ×2 (08:23→20:30)
[2021-04-22] MEDS: estradioL 1 MG TAB PO SCH ×2 (08:23→20:30)
[2021-04-22] MEDS: NICOTINE 14 MG/24 HR TRANSDERMAL TD SCH (08:24)
[2021-04-22] MEDS: hydrOXYzine 50 MG TAB PO PRN (14:45)
[2021-04-22 19:08] VITALS: BP 133/73
[2021-04-22] MEDS: traZODone 50 MG TAB PO PRN (20:30)
[2021-04-23 06:28] VITALS: BP 123/58
[2021-04-23] MEDS: PROGESTERONE 100 MG PO SCH (08:28)
[2021-04-23] MEDS: estradioL 1 MG TAB PO SCH ×2 (08:29→20:36)
[2021-04-23] MEDS: SPIRONOLACTONE 50 MG TAB PO SCH ×2 (08:29→20:36)
[2021-04-23] MEDS: NICOTINE 14 MG/24 HR TRANSDERMAL TD SCH (08:29)
[2021-04-23] MEDS: traZODone 50 MG TAB PO PRN (20:36)
[2021-04-24 06:49] VITALS: BP 128/59
[2021-04-24] MEDS: SPIRONOLACTONE 50 MG TAB PO SCH (08:13)
[2021-04-24] MEDS: estradioL 1 MG TAB PO SCH (08:13)
[2021-04-24] MEDS: PROGESTERONE 100 MG PO SCH (08:14)
[2021-04-24] MEDS: NICOTINE 14 MG/24 HR TRANSDERMAL TD SCH (08:16)
[2021-04-24] MEDS ORDERED: NICO14PA TD (09:19)
== END 2021-04-24 10:20 | disposition home or self-care (01) | DRG 753 ==
LOC: M ED 11:26 → M ED INP 04-17 18:34 → M PSY 04-18 01:14
PROVIDERS: ADMIT Psychiatry & Neurology Psychiatry; ATTEND Psychiatry & Neurology Psychiatry
DX: F31.9 Bipolar disorder, unspecified (principal); Z91.51 Personal history of suicidal behavior; Z62.810 Personal history of physical and sexual abuse in childhood; Z91.14 Patient's other noncompliance with medication regimen; Z79.899 Other long term (current) drug therapy; Z88.0 Allergy status to penicillin; Z20.822 Contact with and (suspected) exposure to COVID-19; F25.9 Schizoaffective disorder, unspecified

== ENCOUNTER 2021-09-04 12:38 | Inpatient (IN) | payer MEDICAID, OTHER ==
[~2021-09-04] VITALS: Ht 167.6 cm; Wt 59.0 kg
[~2021-09-04 12:38] MED LIST changes: +ESTR1TAB PO; +NICO14PA TD; +PROG1CAP8 PO; +SPIR50TA4 PO
[2021-09-04 13:24] LABS: HEMATOCRIT 37.4 % (42.0-52.0); HEMOGLOBIN 13.6 g/dl (13.5-17.5); MEAN CORPUSCULAR HEMOGLOBIN 30.6 pg (27.0-33.0); MEAN CORPUSCULAR HGB CONC 36.4 g/dl (32.0-36.5); PLATELET COUNT, AUTOMATED 383 10^3/uL (150-450); RED BLOOD COUNT 4.45 10^6/uL (4.30-6.10); WHITE BLOOD COUNT 9.9 10^3/uL (4.0-10.0)
[2021-09-04 13:58] LABS: ACETAMINOPHEN LEVEL < 2.0 UG/ML (10.0-30.0); ALBUMIN 4.2 GM/DL (3.2-5.2); ALT/SGPT 29 U/L (12-78); BILIRUBIN,DIRECT 0.4 MG/DL (0.0-0.2); BILIRUBIN,TOTAL 1.6 MG/DL (0.2-1.0); BLOOD UREA NITROGEN 14 MG/DL (7-18); CALCIUM LEVEL 9.1 MG/DL (8.5-10.1); CARBON DIOXIDE LEVEL 22 MEQ/L (21-32); CHLORIDE LEVEL 106 MEQ/L (98-107); CREATININE FOR GFR 1.03 MG/DL (0.70-1.30); ETHYL ALCOHOL (ETHANOL) < 0.003 % (0.000-0.010); GLOMERULAR FILTRATION RATE > 60.0 (>60); GLUCOSE, FASTING 139 MG/DL (70-100); POTASSIUM SERUM 3.5 MEQ/L (3.5-5.1); SALICYLATE LEVEL < 1.7 MG/DL (5.0-30.0); SODIUM LEVEL 136 MEQ/L (136-145); THYROID STIMULATING HORMONE 0.927 uIU/ML (0.358-3.740); TOTAL PROTEIN 7.4 GM/DL (6.4-8.2)
[2021-09-04] MEDS ORDERED: LORazepam 2 MG TAB PO STA (16:59)
[2021-09-04 19:32] LABS: RSV AMPLIFICATION NEGATIVE (NEGATIVE)
[2021-09-05 02:48] LABS: AMPHETAMINES LEVEL URINE NEGATIVE (NEGATIVE); BARBITURATES URINE NEGATIVE (NEGATIVE); BENZODIAZEPINES URINE NEGATIVE (NEGATIVE); CANNABINOIDS URINE POSITIVE (NEGATIVE); COCAINE METABOLITE URINE NEGATIVE (NEGATIVE); METHADONE URINE NEGATIVE (NEGATIVE); OPIATES URINE NEGATIVE (NEGATIVE); PHENCYCLIDINE URINE NEGATIVE (NEGATIVE)
[2021-09-05] MEDS ORDERED: IBUPROFEN 400MG TAB PO ONE (02:55)
[2021-09-05] MEDS ORDERED: ESTR1TAB PO (03:16)
[2021-09-05] MEDS ORDERED: HOME MED LIST COMPLETE! XX SCH (03:20)
[2021-09-05] MEDS ORDERED: LORazepam 1 MG TAB PO STA (03:53)
[2021-09-05] MEDS ORDERED: NICOTINE 21MG/24HR 1 EA TRANSDERMAL TD ONE (03:55)
[2021-09-05] MEDS ORDERED: estradioL 1 MG TAB PO SCH ×2 (09:00)
[2021-09-05] MEDS ORDERED: SPIRONOLACTONE 50 MG TAB PO SCH ×2 (09:00→21:00)
[2021-09-05] MEDS ORDERED: MOM 30ML SUSPENSION UDC PO PRN (13:20)
[2021-09-05] MEDS ORDERED: OLANZapine ORAL DISINTEGRATING TAB 5MG PO PRN (13:20)
[2021-09-05] MEDS ORDERED: IBUPROFEN 400MG TAB PO PRN (13:20)
[2021-09-05] MEDS ORDERED: MAALOX 30 ML SUSP *UDC PO PRN (13:20)
[2021-09-05] MEDS: NICOTINE 21MG/24HR 1 EA TRANSDERMAL TD SCH (14:39)
[2021-09-05 15:13] VITALS: BP 148/83
[2021-09-05 16:35] VITALS: BP 133/68
[2021-09-05] MEDS ORDERED: ACETAMINOPHEN 500 MG TAB PO ONE (16:50)
[2021-09-05] MEDS: SPIRONOLACTONE 50 MG TAB PO SCH ×2 (17:00→20:26)
[2021-09-05] MEDS: PROGESTERONE 100MG CAPSULE (PATIENT'S OWN MED) PO SCH (18:03)
[2021-09-05] MEDS: estradioL 1 MG TAB PO SCH (20:16)
[2021-09-05] MEDS: traZODone 50 MG TAB PO PRN (20:55)
[2021-09-06] MEDS: PROGESTERONE 100MG CAPSULE (PATIENT'S OWN MED) PO SCH (08:08)
[2021-09-06] MEDS: SPIRONOLACTONE 50 MG TAB PO SCH ×2 (08:08→16:07)
[2021-09-06] MEDS: estradioL 1 MG TAB PO SCH ×2 (08:10→20:41)
[2021-09-06] MEDS: NICOTINE 21MG/24HR 1 EA TRANSDERMAL TD SCH ×2 (08:11→16:07)
[2021-09-06] MEDS ORDERED: ARIPiprazole MONOHYDRATE 400 MG INJ (ABILIFY) IM ONE (11:00)
[2021-09-06 16:30] VITALS: BP 132/60
[2021-09-06] MEDS: traZODone 50 MG TAB PO PRN (21:01)
[2021-09-07 06:27] VITALS: BP 119/56
[2021-09-07] MEDS: SPIRONOLACTONE 50 MG TAB PO SCH ×2 (08:43→17:01)
[2021-09-07] MEDS: estradioL 1 MG TAB PO SCH ×2 (08:44→20:03)
[2021-09-07] MEDS: NICOTINE 21MG/24HR 1 EA TRANSDERMAL TD SCH (08:44)
[2021-09-07] MEDS: PROGESTERONE 100MG CAPSULE (PATIENT'S OWN MED) PO SCH (08:56)
[2021-09-07 18:31] VITALS: BP 126/83
[2021-09-07] MEDS: OLANZapine 5 MG TAB PO SCH (20:02)
[2021-09-07] MEDS: traZODone 50 MG TAB PO PRN (20:06)
[2021-09-08 07:07] VITALS: BP 139/67
[2021-09-08] MEDS: estradioL 1 MG TAB PO SCH (08:23)
[2021-09-08] MEDS: OLANZapine 5 MG TAB PO SCH (08:23)
[2021-09-08] MEDS: NICOTINE 21MG/24HR 1 EA TRANSDERMAL TD SCH (08:23)
[2021-09-08] MEDS: PROGESTERONE 100MG CAPSULE (PATIENT'S OWN MED) PO SCH (08:23)
[2021-09-08] MEDS: SPIRONOLACTONE 50 MG TAB PO SCH (08:24)
[2021-09-08 08:28] LABS: CHOLESTEROL RISK RATIO 2.788 (<5)
[2021-09-08] MEDS ORDERED: ABIL1INJ2 IM ×2 (10:59→11:06)
[2021-09-08] MEDS ORDERED: NICO21PAT TD (10:59)
[2021-09-08] MEDS ORDERED: ARIPiprazole MONOHYDRATE 400 MG INJ (ABILIFY) IM ONE ×2 (12:00→14:00)
== END 2021-09-08 14:20 | disposition home or self-care (01) | DRG 750 ==
LOC: M ED 12:38 → M ED INP 09-05 13:17 → M PSY 09-05 15:08
PROVIDERS: ADMIT Psychiatry & Neurology Psychiatry; ATTEND Psychiatry & Neurology Psychiatry
DX: F25.0 Schizoaffective disorder, bipolar type (principal); F60.89 Other specific personality disorders; F17.210 Nicotine dependence, cigarettes, uncomplicated; F12.10 Cannabis abuse, uncomplicated; Z56.0 Unemployment, unspecified; M25.551 Pain in right hip; Z91.52 Personal history of nonsuicidal self-harm; Z20.822 Contact with and (suspected) exposure to COVID-19; Z79.899 Other long term (current) drug therapy; Z88.0 Allergy status to penicillin; M25.561 Pain in right knee; Z91.14 Patient's other noncompliance with medication regimen

== ENCOUNTER 2021-11-03 11:31 | Inpatient (IN) | payer OTHER ==
[~2021-11-03] VITALS: Ht 170.2 cm; Wt 62.6 kg
[~2021-11-03 11:31] MED LIST changes: +NICO21PAT TD
[2021-11-03 12:13] LABS: BASO % 0.2 % (0.0-1.0); EOS # 0.1 10^3/uL (0.0-0.5); EOS % 0.4 % (0.0-3.0); HEMATOCRIT 33.6 % (42.0-52.0); HEMOGLOBIN 12.1 g/dl (13.5-17.5); LYMPH # 1.2 10^3/uL (1.5-5.0); LYMPH % 9.7 % (24.0-44.0); MEAN CORPUSCULAR HEMOGLOBIN 30.5 pg (27.0-33.0); MEAN CORPUSCULAR VOLUME 84.6 fl (80.0-96.0); MONO # 0.7 10^3/uL (0.0-0.8); MONO % 5.7 % (2.0-8.0); NEUTROPHILS # 10.4 10^3/uL (1.5-8.5); NEUTROPHILS % 83.5 % (36.0-66.0); PLATELET COUNT, AUTOMATED 404 10^3/uL (150-450); RED BLOOD COUNT 3.97 10^6/uL (4.30-6.10); WHITE BLOOD COUNT 12.4 10^3/uL (4.0-10.0)
[2021-11-03 12:39] LABS: OSMOLALITY SERUM 280 MOSM/KG (275-295)
[2021-11-03 12:42] LABS: ALBUMIN 3.7 GM/DL (3.2-5.2); ALT/SGPT 42 U/L (12-78); BILIRUBIN,DIRECT 0.2 MG/DL (0.0-0.2); BILIRUBIN,TOTAL 0.5 MG/DL (0.2-1.0); BLOOD UREA NITROGEN 15 MG/DL (7-18); CALCIUM LEVEL 8.6 MG/DL (8.5-10.1); CARBON DIOXIDE LEVEL 25 MEQ/L (21-32); CHLORIDE LEVEL 104 MEQ/L (98-107); CREATININE FOR GFR 0.73 MG/DL (0.70-1.30); ETHYL ALCOHOL (ETHANOL) < 0.003 % (0.000-0.010); GLOMERULAR FILTRATION RATE > 60.0 (>60); GLUCOSE, FASTING 110 MG/DL (70-100); POTASSIUM SERUM 3.9 MEQ/L (3.5-5.1); SALICYLATE LEVEL < 1.7 MG/DL (5.0-30.0); SODIUM LEVEL 137 MEQ/L (136-145); THYROID STIMULATING HORMONE 0.879 uIU/ML (0.358-3.740); TOTAL PROTEIN 7.3 GM/DL (6.4-8.2)
[2021-11-03] MEDS ORDERED: ESTR2TAB3 SL (14:21)
[2021-11-03] MEDS ORDERED: AMOX875T2 PO (14:25)
[2021-11-03] MEDS ORDERED: IBUP-1114 PO (14:25)
[2021-11-03] MEDS ORDERED: MUPI2OI TOP (14:25)
[2021-11-03] MEDS ORDERED: MED NOTE (14:26)
[2021-11-03] MEDS ORDERED: HOME MED LIST COMPLETE! XX SCH (14:30)
[2021-11-03] MEDS ORDERED: ACETYLCYSTEINE IV ONE ×3 (15:00→21:00)
[2021-11-03] MEDS ORDERED: D5W IV ONE ×3 (15:00→21:00)
[2021-11-03 15:37] LABS: AMPHETAMINES LEVEL URINE NEGATIVE (NEGATIVE); BARBITURATES URINE NEGATIVE (NEGATIVE); BENZODIAZEPINES URINE NEGATIVE (NEGATIVE); CANNABINOIDS URINE POSITIVE (NEGATIVE); COCAINE METABOLITE URINE NEGATIVE (NEGATIVE); METHADONE URINE NEGATIVE (NEGATIVE); OPIATES URINE NEGATIVE (NEGATIVE); PHENCYCLIDINE URINE NEGATIVE (NEGATIVE)
[2021-11-03 16:09] LABS: ACETAMINOPHEN LEVEL 13.6 UG/ML (0.0-30.0)
[2021-11-03] MEDS ORDERED: ONDANSETRON 4MG 2ML VIAL IV ONE (17:30)
[2021-11-03 19:26] LABS: RSV AMPLIFICATION NEGATIVE (NEGATIVE)
[2021-11-03] MEDS ORDERED: SPIRONOLACTONE 50 MG TAB PO ONE (22:25)
[2021-11-03] MEDS ORDERED: estradioL 1 MG TAB PO SCH (22:25)
[2021-11-04] MEDS ORDERED: NORCO, ANEXSIA 5/325MG TABLET (HYDROcodone/ACETAMINOPHEN) PO ONE (08:45)
[2021-11-04] MEDS ORDERED: SPIRONOLACTONE 50 MG TAB PO ONE (09:00)
[2021-11-04] MEDS: AUGMENTIN 875 MG TAB PO SCH ×2 (09:00→21:19)
[2021-11-04] MEDS: SPIRONOLACTONE 50 MG TAB PO SCH ×2 (09:00→17:30)
[2021-11-04] MEDS: estradioL 1 MG TAB PO SCH ×2 (09:41→21:20)
[2021-11-04] MEDS ORDERED: estradioL 1 MG TAB PO SCH (21:00)
[2021-11-05] MEDS: SPIRONOLACTONE 50 MG TAB PO SCH ×2 (09:03→17:00)
[2021-11-05] MEDS: AUGMENTIN 875 MG TAB PO SCH ×2 (09:03→20:56)
[2021-11-05] MEDS: estradioL 1 MG TAB PO SCH ×2 (09:03→20:57)
[2021-11-05] MEDS ORDERED: BACITRACIN OINTMENT 30GM TUBE TOP ONE (22:25)
[2021-11-06] MEDS: AUGMENTIN 875 MG TAB PO SCH ×2 (09:14→23:17)
[2021-11-06] MEDS: SPIRONOLACTONE 50 MG TAB PO SCH ×2 (09:15→20:54)
[2021-11-06] MEDS: estradioL 1 MG TAB PO SCH ×2 (09:16→20:54)
[2021-11-06] MEDS ORDERED: MAALOX 30 ML SUSP *UDC PO PRN (15:05)
[2021-11-06] MEDS ORDERED: OLANZapine ORAL DISINTEGRATING TAB 5MG PO PRN (15:05)
[2021-11-06] MEDS ORDERED: MOM 30ML SUSPENSION UDC PO PRN (15:05)
[2021-11-06] MEDS: NICOTINE 21MG/24HR 1 EA TRANSDERMAL TD SCH (15:42)
[2021-11-06 17:06] VITALS: BP 133/67
[2021-11-06] MEDS: MUPIROCIN 2% OINT 22 GM TUBE TOP SCH (20:53)
[2021-11-07 06:48] VITALS: BP 124/61
[2021-11-07] MEDS: NICOTINE 21MG/24HR 1 EA TRANSDERMAL TD SCH (08:31)
[2021-11-07] MEDS: SPIRONOLACTONE 50 MG TAB PO SCH ×2 (08:33→20:28)
[2021-11-07] MEDS: AUGMENTIN 875 MG TAB PO SCH ×2 (08:33→20:27)
[2021-11-07] MEDS: estradioL 1 MG TAB PO SCH ×2 (08:33→20:29)
[2021-11-07] MEDS: MUPIROCIN 2% OINT 22 GM TUBE TOP SCH ×2 (08:36→20:28)
[2021-11-07] MEDS ORDERED: ARIPiprazole MONOHYDRATE 400 MG INJ (ABILIFY)(FREE PSY INPT ONLY) IM ONE (09:00)
[2021-11-07] MEDS: FLUoxetine 20MG CAP PO SCH (14:08)
[2021-11-07 19:08] VITALS: BP 133/61
[2021-11-08 06:00] VITALS: BP 139/77
[2021-11-08] MEDS: estradioL 1 MG TAB PO SCH ×2 (08:38→21:05)
[2021-11-08] MEDS: SPIRONOLACTONE 50 MG TAB PO SCH ×2 (08:38→21:05)
[2021-11-08] MEDS: NICOTINE 21MG/24HR 1 EA TRANSDERMAL TD SCH (08:38)
[2021-11-08] MEDS: FLUoxetine 20MG CAP PO SCH (08:38)
[2021-11-08] MEDS: AUGMENTIN 875 MG TAB PO SCH (08:38)
[2021-11-08] MEDS: MUPIROCIN 2% OINT 22 GM TUBE TOP SCH ×2 (08:43→21:05)
[2021-11-08 18:18] VITALS: BP 124/60
[2021-11-09 06:56] VITALS: BP 126/61
[2021-11-09] MEDS: SPIRONOLACTONE 50 MG TAB PO SCH ×3 (08:36→20:08)
[2021-11-09] MEDS: FLUoxetine 20MG CAP PO SCH (08:37)
[2021-11-09] MEDS: NICOTINE 21MG/24HR 1 EA TRANSDERMAL TD SCH (08:37)
[2021-11-09] MEDS: estradioL 1 MG TAB PO SCH ×2 (08:42→20:08)
[2021-11-09] MEDS: MUPIROCIN 2% OINT 22 GM TUBE TOP SCH ×2 (08:42→20:10)
[2021-11-09] MEDS ORDERED: PROGESTERONE MICRONIZED 100 MG PO SCH (09:00)
[2021-11-09 18:23] VITALS: BP 131/70
[2021-11-10 06:36] VITALS: BP 121/68
[2021-11-10] MEDS: NICOTINE 21MG/24HR 1 EA TRANSDERMAL TD SCH (09:00)
[2021-11-10] MEDS: FLUoxetine 20MG CAP PO SCH (09:00)
[2021-11-10] MEDS: SPIRONOLACTONE 50 MG TAB PO SCH ×2 (09:01→20:19)
[2021-11-10] MEDS: estradioL 1 MG TAB PO SCH ×2 (09:02→20:18)
[2021-11-10] MEDS: MUPIROCIN 2% OINT 22 GM TUBE TOP SCH ×2 (09:02→21:39)
[2021-11-10 18:00] VITALS: BP 142/68
[2021-11-11 07:20] VITALS: BP 121/71
[2021-11-11] MEDS: FLUoxetine 20MG CAP PO SCH (08:34)
[2021-11-11] MEDS: MUPIROCIN 2% OINT 22 GM TUBE TOP SCH ×2 (08:35→21:11)
[2021-11-11] MEDS: estradioL 1 MG TAB PO SCH ×2 (08:35→21:11)
[2021-11-11] MEDS: SPIRONOLACTONE 50 MG TAB PO SCH ×2 (08:35→21:11)
[2021-11-11] MEDS: NICOTINE 21MG/24HR 1 EA TRANSDERMAL TD SCH (08:35)
[2021-11-11 18:23] VITALS: BP 134/67
[2021-11-12 06:00] VITALS: BP 122/59
[2021-11-12] MEDS: SPIRONOLACTONE 50 MG TAB PO SCH ×2 (08:34→20:23)
[2021-11-12] MEDS: estradioL 1 MG TAB PO SCH ×2 (08:34→20:23)
[2021-11-12] MEDS: MUPIROCIN 2% OINT 22 GM TUBE TOP SCH ×2 (08:35→20:22)
[2021-11-12] MEDS: FLUoxetine 20MG CAP PO SCH (08:35)
[2021-11-12] MEDS: NICOTINE 21MG/24HR 1 EA TRANSDERMAL TD SCH (08:35)
[2021-11-12 16:09] VITALS: BP 120/70
[2021-11-13 07:04] VITALS: BP 109/57
[2021-11-13] MEDS: NICOTINE 21MG/24HR 1 EA TRANSDERMAL TD SCH (08:30)
[2021-11-13] MEDS: FLUoxetine 20MG CAP PO SCH (08:31)
[2021-11-13] MEDS: MUPIROCIN 2% OINT 22 GM TUBE TOP SCH ×2 (08:33→20:51)
[2021-11-13] MEDS: estradioL 1 MG TAB PO SCH ×2 (08:33→20:52)
[2021-11-13] MEDS: SPIRONOLACTONE 50 MG TAB PO SCH ×2 (08:34→20:52)
[2021-11-13 18:42] VITALS: BP 139/65
[2021-11-14 06:58] VITALS: BP 122/65
[2021-11-14] MEDS: NICOTINE 21MG/24HR 1 EA TRANSDERMAL TD SCH (08:16)
[2021-11-14] MEDS: FLUoxetine 20MG CAP PO SCH (08:16)
[2021-11-14] MEDS: estradioL 1 MG TAB PO SCH ×2 (08:18→21:48)
[2021-11-14] MEDS: SPIRONOLACTONE 50 MG TAB PO SCH ×2 (08:19→21:48)
[2021-11-14] MEDS: MUPIROCIN 2% OINT 22 GM TUBE TOP SCH ×2 (08:19→21:00)
[2021-11-14 19:03] VITALS: BP 155/70
[2021-11-15 06:54] VITALS: BP 121/58
[2021-11-15] MEDS: SPIRONOLACTONE 50 MG TAB PO SCH ×2 (08:26→21:22)
[2021-11-15] MEDS: estradioL 1 MG TAB PO SCH ×2 (08:26→21:22)
[2021-11-15] MEDS: FLUoxetine 20MG CAP PO SCH (08:29)
[2021-11-15] MEDS: MUPIROCIN 2% OINT 22 GM TUBE TOP SCH ×2 (08:29→21:22)
[2021-11-15] MEDS: NICOTINE 21MG/24HR 1 EA TRANSDERMAL TD SCH (08:29)
[2021-11-15] MEDS ORDERED: ARIPiprazole MONOHYDRATE 400 MG INJ (ABILIFY) PT CHG ONE IM (11:20)
[2021-11-15 17:53] VITALS: BP 138/77
[2021-11-15] MEDS ORDERED: ARIPiprazole MONOHYDRATE 400 MG INJ (ABILIFY)(FREE PSY INPT ONLY) IM ONE (18:00)
[2021-11-16 06:55] VITALS: BP 128/79
[2021-11-16] MEDS: FLUoxetine 20MG CAP PO SCH (09:00)
[2021-11-16] MEDS: NICOTINE 21MG/24HR 1 EA TRANSDERMAL TD SCH (09:00)
[2021-11-16] MEDS: estradioL 1 MG TAB PO SCH ×2 (09:31→21:54)
[2021-11-16] MEDS: SPIRONOLACTONE 50 MG TAB PO SCH ×2 (09:31→21:54)
[2021-11-16] MEDS: MUPIROCIN 2% OINT 22 GM TUBE TOP SCH ×2 (09:33→21:56)
[2021-11-16 18:54] VITALS: BP 119/63
[2021-11-17 06:56] VITALS: BP 137/74
[2021-11-17] MEDS: SPIRONOLACTONE 50 MG TAB PO SCH ×2 (08:23→22:34)
[2021-11-17] MEDS: estradioL 1 MG TAB PO SCH ×2 (08:23→22:34)
[2021-11-17] MEDS: FLUoxetine 20MG CAP PO SCH (08:24)
[2021-11-17] MEDS: NICOTINE 21MG/24HR 1 EA TRANSDERMAL TD SCH (08:24)
[2021-11-17] MEDS: MUPIROCIN 2% OINT 22 GM TUBE TOP SCH ×2 (08:24→21:00)
[2021-11-18 07:14] VITALS: BP 95/53
[2021-11-18] MEDS: MUPIROCIN 2% OINT 22 GM TUBE TOP SCH ×3 (09:00→23:20)
[2021-11-18] MEDS: estradioL 1 MG TAB PO SCH ×2 (10:44→22:23)
[2021-11-18] MEDS: SPIRONOLACTONE 50 MG TAB PO SCH ×2 (10:44→22:24)
[2021-11-18] MEDS: NICOTINE 21MG/24HR 1 EA TRANSDERMAL TD SCH ×2 (10:44→10:56)
[2021-11-18] MEDS: FLUoxetine 20MG CAP PO SCH ×2 (10:45→10:55)
[2021-11-18 17:32] VITALS: BP 131/61
[2021-11-19 06:53] VITALS: BP 121/56
[2021-11-19] MEDS: SPIRONOLACTONE 50 MG TAB PO SCH ×2 (10:01→21:50)
[2021-11-19] MEDS: estradioL 1 MG TAB PO SCH ×2 (10:01→21:50)
[2021-11-19] MEDS: MUPIROCIN 2% OINT 22 GM TUBE TOP SCH ×2 (10:05→21:50)
[2021-11-19] MEDS: FLUoxetine 20MG CAP PO SCH (10:05)
[2021-11-19] MEDS: NICOTINE 21MG/24HR 1 EA TRANSDERMAL TD SCH (10:05)
[2021-11-19 17:40] VITALS: BP 136/65
[2021-11-20 07:07] VITALS: BP 121/70
[2021-11-20] MEDS: MUPIROCIN 2% OINT 22 GM TUBE TOP SCH (08:43)
[2021-11-20] MEDS: estradioL 1 MG TAB PO SCH (08:43)
[2021-11-20] MEDS: SPIRONOLACTONE 50 MG TAB PO SCH (08:43)
[2021-11-20] MEDS ORDERED: ABIL1INJ2 IM (09:38)
[2021-11-20] MEDS ORDERED: NICO21PAT TD (09:38)
== END 2021-11-20 11:18 | disposition home or self-care (01) | DRG 753 ==
LOC: EDBD 11:31 → M ED 11:31 → M ED INP 11-06 15:01 → M PSY 11-06 17:03
PROVIDERS: ADMIT Student in an Organized Health Care Education/Training Program; ATTEND Student in an Organized Health Care Education/Training Program
DX: F31.9 Bipolar disorder, unspecified (principal); Z91.14 Patient's other noncompliance with medication regimen; F44.9 Dissociative and conversion disorder, unspecified; Z91.19 Patient's noncompliance with other medical treatment and regimen; F43.10 Post-traumatic stress disorder, unspecified; F12.90 Cannabis use, unspecified, uncomplicated; F60.3 Borderline personality disorder; F60.89 Other specific personality disorders; F16.90 Hallucinogen use, unspecified, uncomplicated; F64.9 Gender identity disorder, unspecified; Z79.899 Other long term (current) drug therapy; Z88.0 Allergy status to penicillin; G47.00 Insomnia, unspecified; R45.84 Anhedonia; F17.200 Nicotine dependence, unspecified, uncomplicated

== ENCOUNTER 2022-03-08 23:54 | Emergency (ER) | payer OTHER ==
[~2022-03-08] VITALS: Ht 170.2 cm; Wt 67.1 kg
[~2022-03-08 23:54] MED LIST changes: +AMOX875T2 PO; +ESTR2TAB3 SL; +IBUP-1114 PO; +MED NOTE; +MUPI2OI TOP
[2022-03-09 00:32] VITALS: BP 134/78
[2022-03-09 00:37] LABS: HEMOGLOBIN 13.9 g/dl (13.5-17.5); MEAN CORPUSCULAR HEMOGLOBIN 29.2 pg (27.0-33.0); MEAN CORPUSCULAR HGB CONC 35.6 g/dl (32.0-36.5); MEAN CORPUSCULAR VOLUME 81.9 fl (80.0-96.0); PLATELET COUNT, AUTOMATED 397 10^3/uL (150-450); RED BLOOD COUNT 4.76 10^6/uL (4.30-6.10); WHITE BLOOD COUNT 14.6 10^3/uL (4.0-10.0)
[2022-03-09 01:15] LABS: AMPHETAMINES LEVEL URINE NEGATIVE (NEGATIVE); BARBITURATES URINE NEGATIVE (NEGATIVE); BENZODIAZEPINES URINE NEGATIVE (NEGATIVE); CANNABINOIDS URINE POSITIVE (NEGATIVE); COCAINE METABOLITE URINE NEGATIVE (NEGATIVE); METHADONE URINE NEGATIVE (NEGATIVE); OPIATES URINE NEGATIVE (NEGATIVE); PHENCYCLIDINE URINE NEGATIVE (NEGATIVE)
[2022-03-09 01:32] LABS: ACETAMINOPHEN LEVEL < 2.0 UG/ML (10.0-30.0); ALT/SGPT 32 U/L (12-78); BILIRUBIN,DIRECT 0.2 MG/DL (0.0-0.2); BILIRUBIN,TOTAL 0.9 MG/DL (0.2-1.0); BLOOD UREA NITROGEN 12 MG/DL (7-18); CALCIUM LEVEL 8.8 MG/DL (8.5-10.1); CARBON DIOXIDE LEVEL 22 MEQ/L (21-32); CHLORIDE LEVEL 107 MEQ/L (98-107); CREATININE FOR GFR 0.91 MG/DL (0.70-1.30); ETHYL ALCOHOL (ETHANOL) < 0.003 % (0.000-0.010); GLOMERULAR FILTRATION RATE > 60.0 (>60); GLUCOSE, FASTING 97 MG/DL (70-100); POTASSIUM SERUM 3.9 MEQ/L (3.5-5.1); SALICYLATE LEVEL < 1.7 MG/DL (5.0-30.0); SODIUM LEVEL 137 MEQ/L (136-145); TOTAL PROTEIN 7.3 GM/DL (6.4-8.2)
== END 2022-03-09 06:54 | disposition home or self-care (01) ==
LOC: M ED 23:54
DX: Z13.30 Encounter for screening examination for mental health and behavioral disorders, unspecified (principal); F25.9 Schizoaffective disorder, unspecified; F64.9 Gender identity disorder, unspecified; F29 Unspecified psychosis not due to a substance or known physiological condition; Z88.0 Allergy status to penicillin; Z79.899 Other long term (current) drug therapy

== ENCOUNTER 2022-08-25 14:57 | Emergency (ER) | payer OTHER ==
[~2022-08-25] VITALS: Ht 170.2 cm; Wt 65.6 kg
[2022-08-25] MEDS ORDERED: EMTR1TAB3 (15:14)
[2022-08-25 16:29] LABS: BASO # 0.1 10^3/uL (0.0-0.2); BASO % 0.7 % (0.0-1.0); EOS % 0.1 % (0.0-3.0); HEMATOCRIT 39.2 % (42.0-52.0); HEMOGLOBIN 14.4 g/dl (13.5-17.5); LYMPH # 1.6 10^3/uL (1.5-5.0); LYMPH % 18.8 % (24.0-44.0); MEAN CORPUSCULAR HEMOGLOBIN 30.4 pg (27.0-33.0); MEAN CORPUSCULAR HGB CONC 36.7 g/dl (32.0-36.5); MEAN CORPUSCULAR VOLUME 82.9 fl (80.0-96.0); MONO # 0.9 10^3/uL (0.0-0.8); MONO % 10.3 % (2.0-8.0); NEUTROPHILS % 69.7 % (36.0-66.0); PLATELET COUNT, AUTOMATED 219 10^3/uL (150-450); RED BLOOD COUNT 4.73 10^6/uL (4.30-6.10); WHITE BLOOD COUNT 8.6 10^3/uL (4.0-10.0)
[2022-08-25] MEDS ORDERED: NS 1,000 ML IV ONE (17:15)
[2022-08-25] MEDS ORDERED: ONDANSETRON 4MG 2ML VIAL IV ONE (17:15)
[2022-08-25] MEDS ORDERED: ISOVUE-370 76% 100ML VIAL As Ordered ONE (17:23)
[2022-08-25] MEDS: GASTROGRAFIN SOLUTION 30ML PO SCH ×2 (17:29→18:09)
[2022-08-25] MEDS ORDERED: CIPR-249 PO (20:48)
[2022-08-25] MEDS ORDERED: METR-265 PO (20:48)
[2022-08-25] MEDS ORDERED: CIPROFLOXACIN 500MG TABLET PO ONE (20:50)
[2022-08-25] MEDS ORDERED: metroNIDAZOLE (FLAGYL) 500MG TABLET PO ONE (20:50)
[2022-08-25 21:05] VITALS: BP 124/62
== END 2022-08-25 21:12 | disposition home or self-care (01) ==
LOC: M ED 14:57
DX: R10.9 Unspecified abdominal pain (principal); K51.20 Ulcerative (chronic) proctitis without complications; K62.89 Other specified diseases of anus and rectum; Z88.0 Allergy status to penicillin; Z79.899 Other long term (current) drug therapy
CPT/HCPCS: 74018; 74177; 80047; 81001; 85025; 96374; 99283; J2405; Q9963; Q9967

== ENCOUNTER → 2023-05-08 | Outpatient (CLI) | payer OTHER ==
[~2023-05-08] MED LIST changes: +CIPR-249 PO; +EMTR1TAB3; +ISOVUE-300 61% 100ML VIAL As Ordered ONE; +LIDOCAINE 1% MDV 20ML VIAL As Ordered ONE; +METR-265 PO; +PROHANCE 279.3MG/ML 5ML VIAL As Ordered ONE; +RISP-105 PO; -RISP-8 PO
== END ==
LOC: M RAD 07:00
PROVIDERS: ATTEND Orthopaedic Surgery
DX: M24.412 Recurrent dislocation, left shoulder (principal); Z53.9 Procedure and treatment not carried out, unspecified reason

== ENCOUNTER 2023-05-30 19:46 | Inpatient (IN) | payer OTHER ==
[~2023-05-30] VITALS: Ht 170.2 cm; Wt 63.0 kg
[~2023-05-30 19:46] MED LIST changes: -ISOVUE-300 61% 100ML VIAL As Ordered ONE; -LIDOCAINE 1% MDV 20ML VIAL As Ordered ONE; -PROHANCE 279.3MG/ML 5ML VIAL As Ordered ONE
[2023-05-30 20:28] LABS: HEMATOCRIT 44.2 % (42.0-52.0); MEAN CORPUSCULAR HEMOGLOBIN 30.7 pg (27.0-33.0); MEAN CORPUSCULAR HGB CONC 36.2 g/dl (32.0-36.5); MEAN CORPUSCULAR VOLUME 84.8 fl (80.0-96.0); PLATELET COUNT, AUTOMATED 427 10^3/uL (150-450); RED BLOOD COUNT 5.21 10^6/uL (4.30-6.10); WHITE BLOOD COUNT 29.5 10^3/uL (4.0-10.0)
[2023-05-30 20:48] LABS: AMPHETAMINES LEVEL URINE NEGATIVE (NEGATIVE); BARBITURATES URINE NEGATIVE (NEGATIVE); BENZODIAZEPINES URINE NEGATIVE (NEGATIVE); COCAINE METABOLITE URINE NEGATIVE (NEGATIVE)
[2023-05-30 20:49] LABS: METHADONE URINE NEGATIVE (NEGATIVE); OPIATES URINE NEGATIVE (NEGATIVE); PHENCYCLIDINE URINE NEGATIVE (NEGATIVE)
[2023-05-30 20:51] LABS: CANNABINOIDS URINE POSITIVE (NEGATIVE); ETHYL ALCOHOL (ETHANOL) < 0.003 % (0.000-0.010)
[2023-05-30 20:52] LABS: SALICYLATE LEVEL < 3.0 MG/DL (<30)
[2023-05-30 20:53] LABS: ALKALINE PHOSPHATASE 61 U/L (46-116); ALT/SGPT 33 U/L (7.0-40); AST/SGOT 33 U/L (<34); BILIRUBIN,DIRECT 0.9 MG/DL (<0.4); BILIRUBIN,TOTAL 2.1 MG/DL (0.3-1.2); BLOOD UREA NITROGEN 9 MG/DL (9-23); CALCIUM LEVEL 9.5 MG/DL (8.5-10.1); CARBON DIOXIDE LEVEL 26 MMOL/L (20-31); CHLORIDE LEVEL 107 MMOL/L (98-107); GLOMERULAR FILTRATION RATE > 60.0 (>60); GLUCOSE, FASTING 100 MG/DL (60-100); POTASSIUM SERUM 3.5 MMOL/L (3.5-5.1); SODIUM LEVEL 143 MMOL/L (136-145); TOTAL PROTEIN 7.8 G/DL (5.7-8.2)
[2023-05-30 20:55] LABS: THYROID STIMULATING HORMONE 0.918 uIU/ML (0.55-4.78)
[2023-05-30 23:20] LABS: BASO # 0.1 10^3/uL (0.0-0.2); BASO % 0.4 % (0.0-1.0); LYMPH # 2.1 10^3/uL (1.5-5.0); LYMPH % 7.2 % (24.0-44.0); MONO # 2.3 10^3/uL (0.0-0.8); MONO % 7.6 % (2.0-8.0); NEUTROPHILS # 25.1 10^3/uL (1.5-8.5); NEUTROPHILS % 84.2 % (36.0-66.0)
[2023-05-31 09:13] LABS: BASO # 0.1 10^3/uL (0.0-0.2); BASO % 0.8 % (0.0-1.0); EOS # 0.1 10^3/uL (0.0-0.5); EOS % 1.3 % (0.0-3.0); HEMOGLOBIN 14.2 g/dl (13.5-17.5); LYMPH % 30.6 % (24.0-44.0); MEAN CORPUSCULAR HEMOGLOBIN 30.5 pg (27.0-33.0); MEAN CORPUSCULAR HGB CONC 35.5 g/dl (32.0-36.5); MEAN CORPUSCULAR VOLUME 85.8 fl (80.0-96.0); MONO # 1.2 10^3/uL (0.0-0.8); MONO % 12.5 % (2.0-8.0); NEUTROPHILS # 5.4 10^3/uL (1.5-8.5); NEUTROPHILS % 54.6 % (36.0-66.0); RED BLOOD COUNT 4.66 10^6/uL (4.30-6.10); WHITE BLOOD COUNT 9.9 10^3/uL (4.0-10.0)
[2023-05-31 09:30] LABS: PLATELET COUNT, AUTOMATED 314 10^3/uL (150-450)
[2023-05-31] MEDS ORDERED: SPIR100T3 PO (13:58)
[2023-05-31] MEDS ORDERED: HOME MED LIST COMPLETE! XX SCH (14:00)
[2023-05-31] MEDS ORDERED: MOM 30ML SUSPENSION UDC PO PRN (18:40)
[2023-05-31] MEDS ORDERED: ACETAMINOPHEN TAB 650MG DOSE (2X325MG) PO PRN (18:40)
[2023-05-31] MEDS ORDERED: MAALOX 30 ML SUSP *UDC PO PRN (18:40)
[2023-06-01] MEDS: ARIPiprazole 10 MG TAB PO SCH (09:00)
[2023-06-01] MEDS ORDERED: ARTIFICIAL TEARS DROPS 15ML BTL (VISINE DRY RELIEF) OD PRN (10:10)
[2023-06-01] MEDS: SPIRONOLACTONE 50 MG TAB PO SCH ×2 (11:12→17:03)
[2023-06-01] MEDS: estradioL 1 MG TAB SL SCH ×2 (11:13→21:26)
[2023-06-01 16:06] VITALS: BP 138/61; TEMP 99; O2SAT 100
[2023-06-01] MEDS ORDERED: estradioL 1 MG TAB SL SCH (21:00)
[2023-06-01] MEDS ORDERED: SPIRONOLACTONE 50 MG TAB PO SCH (21:00)
[2023-06-01] MEDS: traZODone 50 MG TAB PO PRN (21:25)
[2023-06-02] VITALS (10 sets, daily range): BP systolic 100–132; BP diastolic 54–68; TEMP 97.8–99.3; O2SAT 96–100
[2023-06-02] MEDS ORDERED: ENTER DRUG NAME HERE (PATIENT'S OWN MED) PO SCH (09:00)
[2023-06-02] MEDS: estradioL 1 MG TAB SL SCH ×2 (09:00→21:36)
[2023-06-02] MEDS: ARIPiprazole 10 MG TAB PO SCH (09:00)
[2023-06-02] MEDS: SPIRONOLACTONE 50 MG TAB PO SCH ×2 (09:00→17:00)
[2023-06-02] MEDS: OLANZapine 5 MG TAB PO SCH ×2 (09:00→21:00)
[2023-06-02] MEDS ORDERED: [UNRECOGNIZED DRUG - OTHER] PO SCH (09:00)
[2023-06-02] MEDS ORDERED: LORazepam 2 MG TAB PO STA (16:39)
[2023-06-02] MEDS ORDERED: diphenhydrAMINE 50MG CAP PO STA (16:39)
[2023-06-02] MEDS ORDERED: LORazepam 2 MG/ML 1ML VIAL IM STA (16:58)
[2023-06-02] MEDS ORDERED: diphenhydrAMINE 50MG/ML VIAL IM STA (16:58)
[2023-06-02] MEDS ORDERED: HALOPERIDOL 5MG/ML 1ML VIAL IM STA (16:58)
[2023-06-03 06:52] VITALS: BP 112/57; TEMP 98.5; O2SAT 100
[2023-06-03] MEDS: OLANZapine 5 MG TAB PO SCH ×2 (09:00→20:56)
[2023-06-03] MEDS: ARIPiprazole 10 MG TAB PO SCH (09:00)
[2023-06-03] MEDS: estradioL 1 MG TAB SL SCH ×2 (09:00→20:56)
[2023-06-03] MEDS: SPIRONOLACTONE 50 MG TAB PO SCH ×2 (09:00→16:25)
[2023-06-03 18:56] VITALS: BP 127/65; TEMP 96.8; O2SAT 98
[2023-06-03 21:20] VITALS: BP 137/71; TEMP 98.3; O2SAT 98
[2023-06-03] MEDS ORDERED: LORazepam 1 MG TAB PO ONE (22:00)
[2023-06-04 06:21] VITALS: BP 111/62; TEMP 97.9; O2SAT 99
[2023-06-04] MEDS: OLANZapine 5 MG TAB PO SCH ×2 (08:36→20:43)
[2023-06-04] MEDS: SPIRONOLACTONE 50 MG TAB PO SCH ×2 (08:36→16:27)
[2023-06-04] MEDS: ARIPiprazole 10 MG TAB PO SCH (08:36)
[2023-06-04] MEDS: estradioL 1 MG TAB SL SCH ×2 (08:36→20:43)
[2023-06-04 18:00] VITALS: BP 127/58; TEMP 98.4; O2SAT 97
[2023-06-04] MEDS: diphenhydrAMINE 25MG CAP PO PRN (23:53)
[2023-06-04] MEDS: IBUPROFEN 400MG TAB PO PRN (23:53)
[2023-06-05] MEDS: SPIRONOLACTONE 50 MG TAB PO SCH ×2 (09:00→16:39)
[2023-06-05] MEDS: ARIPiprazole 10 MG TAB PO SCH (09:00)
[2023-06-05] MEDS: OLANZapine 5 MG TAB PO SCH ×2 (09:00→21:00)
[2023-06-05] MEDS: estradioL 1 MG TAB SL SCH ×2 (09:00→21:00)
[2023-06-05 16:52] VITALS: BP 117/63; TEMP 97.3; O2SAT 100
[2023-06-05] MEDS: diphenhydrAMINE 25MG CAP PO PRN (17:53)
[2023-06-05] MEDS: IBUPROFEN 400MG TAB PO PRN (17:54)
[2023-06-06 06:06] VITALS: BP 124/66; TEMP 97.7; O2SAT 100
[2023-06-06] MEDS: ARIPiprazole 10 MG TAB PO SCH (09:00)
[2023-06-06] MEDS: estradioL 1 MG TAB SL SCH ×2 (09:13→21:30)
[2023-06-06] MEDS: OLANZapine 5 MG TAB PO SCH (09:14)
[2023-06-06] MEDS: SPIRONOLACTONE 50 MG TAB PO SCH ×2 (09:14→17:08)
[2023-06-06] MEDS: diphenhydrAMINE 25MG CAP PO PRN (09:16)
[2023-06-06] MEDS: IBUPROFEN 400MG TAB PO PRN (09:16)
[2023-06-06 16:08] VITALS: BP 144/63; TEMP 96.9; O2SAT 98
[2023-06-06] MEDS: OLANZapine ORAL DISINTEGRATING TAB 5MG PO SCH (21:00)
[2023-06-07] MEDS: estradioL 1 MG TAB SL SCH ×2 (10:02→20:07)
[2023-06-07] MEDS: diphenhydrAMINE 25MG CAP PO PRN ×2 (10:04→20:09)
[2023-06-07] MEDS: SPIRONOLACTONE 50 MG TAB PO SCH ×2 (10:04→18:44)
[2023-06-07] MEDS: ARIPiprazole 10 MG TAB PO SCH (10:05)
[2023-06-07] MEDS: OLANZapine ORAL DISINTEGRATING TAB 5MG PO SCH ×2 (10:05→21:02)
[2023-06-07] MEDS: IBUPROFEN 400MG TAB PO PRN ×2 (10:05→20:09)
[2023-06-07 16:49] VITALS: BP 128/64; TEMP 98.3; O2SAT 99
[2023-06-08] MEDS: OLANZapine ORAL DISINTEGRATING TAB 5MG PO SCH ×2 (08:44→21:21)
[2023-06-08] MEDS: ARIPiprazole 10 MG TAB PO SCH (08:44)
[2023-06-08] MEDS: SPIRONOLACTONE 50 MG TAB PO SCH ×2 (09:05→16:54)
[2023-06-08] MEDS: estradioL 1 MG TAB SL SCH ×2 (09:06→21:20)
[2023-06-08 17:19] VITALS: BP 136/72; TEMP 98.1; O2SAT 99
[2023-06-08] MEDS: diphenhydrAMINE 25MG CAP PO PRN (21:20)
[2023-06-08] MEDS: IBUPROFEN 400MG TAB PO PRN (21:21)
[2023-06-09] MEDS: ARIPiprazole 10 MG TAB PO SCH (09:00)
[2023-06-09] MEDS: estradioL 1 MG TAB SL SCH ×2 (10:11→20:33)
[2023-06-09] MEDS: OLANZapine ORAL DISINTEGRATING TAB 5MG PO SCH ×2 (10:11→20:32)
[2023-06-09] MEDS: SPIRONOLACTONE 50 MG TAB PO SCH ×3 (10:13→18:15)
[2023-06-09] MEDS: diphenhydrAMINE 25MG CAP PO PRN (20:32)
[2023-06-10 06:13] VITALS: BP 134/61; TEMP 98.1; O2SAT 95
[2023-06-10] MEDS: SPIRONOLACTONE 50 MG TAB PO SCH ×2 (08:12→16:20)
[2023-06-10] MEDS: IBUPROFEN 400MG TAB PO PRN (08:13)
[2023-06-10] MEDS: OLANZapine ORAL DISINTEGRATING TAB 5MG PO SCH ×2 (08:13→21:35)
[2023-06-10] MEDS: estradioL 1 MG TAB SL SCH ×2 (08:13→21:35)
[2023-06-10] MEDS: ARIPiprazole 10 MG TAB PO SCH (08:18)
[2023-06-10 15:21] LABS: C REACTIVE PROTEIN QUANTITATIV < 0.40 MG/DL (<1.0)
[2023-06-10 17:24] VITALS: BP 126/69; TEMP 97.8
[2023-06-10] MEDS: traZODone 50 MG TAB PO PRN (22:51)
[2023-06-11 06:38] VITALS: BP 134/69; TEMP 97.1; O2SAT 98
[2023-06-11] MEDS: OLANZapine ORAL DISINTEGRATING TAB 5MG PO SCH (08:15)
[2023-06-11] MEDS: ARIPiprazole 10 MG TAB PO SCH ×2 (08:15→08:19)
[2023-06-11] MEDS: estradioL 1 MG TAB SL SCH (08:15)
[2023-06-11] MEDS: SPIRONOLACTONE 50 MG TAB PO SCH (08:16)
[2023-06-11] MEDS ORDERED: OLAN1TAB16 PO (10:06)
[2023-06-11] MEDS ORDERED: TRAZ-252 PO (10:06)
[2023-06-11] MEDS ORDERED: Peg 400/Hypromellose/Glycerin OD (10:06)
== END 2023-06-11 10:46 | disposition home or self-care (01) | DRG 753 ==
LOC: M ED 19:46 → M ED INP 05-31 18:39 → M PSY 05-31 20:55
PROVIDERS: ADMIT Student in an Organized Health Care Education/Training Program; ATTEND Student in an Organized Health Care Education/Training Program
DX: F31.9 Bipolar disorder, unspecified (principal); R45.851 Suicidal ideations; F64.9 Gender identity disorder, unspecified; F60.89 Other specific personality disorders; F12.90 Cannabis use, unspecified, uncomplicated; F17.210 Nicotine dependence, cigarettes, uncomplicated; Z90.49 Acquired absence of other specified parts of digestive tract; S05.01XA Injury of conjunctiva and corneal abrasion without foreign body, right eye, initial encounter; X58.XXXA Exposure to other specified factors, initial encounter; Y92.9 Unspecified place or not applicable; Z88.0 Allergy status to penicillin; Z79.899 Other long term (current) drug therapy; Z79.890 Hormone replacement therapy; Z91.51 Personal history of suicidal behavior; Z56.0 Unemployment, unspecified; Z78.1 Physical restraint status; Z20.822 Contact with and (suspected) exposure to COVID-19

== ENCOUNTER 2023-07-03 09:02 | Inpatient (IN) | payer MEDICAID, OTHER ==
[~2023-07-03] VITALS: Ht 167.6 cm; Wt 65.0 kg
[~2023-07-03 09:02] MED LIST changes: +OLAN1TAB16 PO; +Peg 400/Hypromellose/Glycerin OD; +SPIR100T3 PO; +TRAZ-252 PO
[2023-07-03 10:19] LABS: HEMATOCRIT 42.7 % (42.0-52.0); HEMOGLOBIN 14.9 g/dl (13.5-17.5); MEAN CORPUSCULAR HGB CONC 34.9 g/dl (32.0-36.5); MEAN CORPUSCULAR VOLUME 85.9 fl (80.0-96.0); PLATELET COUNT, AUTOMATED 340 10^3/uL (150-450); RED BLOOD COUNT 4.97 10^6/uL (4.30-6.10); WHITE BLOOD COUNT 8.4 10^3/uL (4.0-10.0)
[2023-07-03 10:49] LABS: ALBUMIN 4.2 G/DL (3.2-5.2); ALKALINE PHOSPHATASE 71 U/L (46-116); ALT/SGPT 23 U/L (7.0-40); AST/SGOT 14 U/L (<34); BILIRUBIN,DIRECT 0.3 MG/DL (<0.4); BILIRUBIN,TOTAL 0.9 MG/DL (0.3-1.2); BLOOD UREA NITROGEN 12 MG/DL (9-23); CARBON DIOXIDE LEVEL 27 MMOL/L (20-31); CHLORIDE LEVEL 106 MMOL/L (98-107); CREATININE FOR GFR 0.85 MG/DL (0.70-1.30); GLOMERULAR FILTRATION RATE > 60.0 (>60); GLUCOSE, FASTING 92 MG/DL (60-100); SALICYLATE LEVEL < 3.0 MG/DL (<30); SODIUM LEVEL 139 MMOL/L (136-145); TOTAL PROTEIN 7.1 G/DL (5.7-8.2)
[2023-07-03 10:50] LABS: THYROID STIMULATING HORMONE 0.911 uIU/ML (0.55-4.78)
[2023-07-03 11:50] LABS: AMPHETAMINES LEVEL URINE NEGATIVE (NEGATIVE); BARBITURATES URINE NEGATIVE (NEGATIVE); BENZODIAZEPINES URINE NEGATIVE (NEGATIVE); COCAINE METABOLITE URINE NEGATIVE (NEGATIVE); METHADONE URINE NEGATIVE (NEGATIVE); OPIATES URINE NEGATIVE (NEGATIVE); PHENCYCLIDINE URINE NEGATIVE (NEGATIVE)
[2023-07-03 11:57] LABS: CANNABINOIDS URINE POSITIVE (NEGATIVE)
[2023-07-03] MEDS ORDERED: OLAN1TAB16 PO (12:15)
[2023-07-03] MEDS ORDERED: [UNRECOGNIZED DRUG - CODE] OU (12:15)
[2023-07-03] MEDS ORDERED: TRAZ-252 PO (12:15)
[2023-07-03] MEDS ORDERED: HOME MED LIST COMPLETE! XX SCH (12:20)
[2023-07-03] MEDS ORDERED: ACETAMINOPHEN TAB 650MG DOSE (2X325MG) PO PRN (12:55)
[2023-07-03] MEDS ORDERED: IBUPROFEN 400MG TAB PO PRN (12:55)
[2023-07-03] MEDS ORDERED: MOM 30ML SUSPENSION UDC PO PRN (12:55)
[2023-07-03] MEDS ORDERED: MAALOX 30 ML SUSP *UDC PO PRN (12:55)
[2023-07-03 15:35] VITALS: BP 120/56; TEMP 98.4; O2SAT 98
[2023-07-04] MEDS ORDERED: PROGESTERONE 100 MG PO SCH (09:00)
[2023-07-04] MEDS: estradioL 1 MG TAB SL SCH (09:42)
[2023-07-04] MEDS: SPIRONOLACTONE 50 MG TAB PO SCH (09:42)
[2023-07-04] MEDS: OLANZapine 5 MG TAB PO SCH (11:24)
[2023-07-04] MEDS: traZODone 50 MG TAB PO PRN (21:08)
[2023-07-05 09:00] VITALS: BP 120/56; TEMP 98.4; O2SAT 98
[2023-07-09 08:00] VITALS: BP 130/74
[2023-07-09 17:08] VITALS: BP 138/63; TEMP 98; O2SAT 98
[2023-07-10 06:30] VITALS: BP 127/72; TEMP 98.3; O2SAT 96
[2023-07-10] MEDS: OLANZapine ORAL DISINTEGRATING TAB 5MG PO PRN (09:08)
[2023-07-10] MEDS: ARIPiprazole MONOHYDRATE 400 MG INJ (ABILIFY)(FREE PSY INPT ONLY) IM SCH (14:11)
[2023-07-10 17:12] VITALS: BP 111/53; TEMP 98.4
[2023-07-11] MEDS: diphenhydrAMINE 25MG CAP PO PRN (01:23)
[2023-07-11] MEDS ORDERED: ABIL400I IM (09:21)
[2023-07-11] MEDS ORDERED: ABIL1TAB11 PO (09:21)
[2023-08-09] MEDS ORDERED: ARIPiprazole MONOHYDRATE 400 MG INJ (ABILIFY)(FREE PSY INPT ONLY) IM SCH (09:00)
== END 2023-07-11 10:58 | disposition home or self-care (01) | DRG 753 ==
LOC: M ED 09:02 → M ED INP 12:52 → M PSY 15:35
PROVIDERS: ADMIT Student in an Organized Health Care Education/Training Program; ATTEND Student in an Organized Health Care Education/Training Program
DX: F31.9 Bipolar disorder, unspecified (principal); F60.3 Borderline personality disorder; F12.90 Cannabis use, unspecified, uncomplicated; F60.89 Other specific personality disorders; F64.9 Gender identity disorder, unspecified; Z91.51 Personal history of suicidal behavior; Z81.1 Family history of alcohol abuse and dependence; Z56.0 Unemployment, unspecified; F17.210 Nicotine dependence, cigarettes, uncomplicated; Z79.899 Other long term (current) drug therapy; Z79.890 Hormone replacement therapy; Z88.0 Allergy status to penicillin; Z11.52 Encounter for screening for COVID-19

== ENCOUNTER → 2023-07-31 | Outpatient (CLI) | payer OTHER ==
[~2023-07-31] MED LIST changes: +ABIL1TAB11 PO; +ABIL400I IM; +[UNRECOGNIZED DRUG - CODE] OU
== END ==
LOC: M OUTALCOH 07:59
PROVIDERS: ATTEND Psychiatry & Neurology Psychiatry
DX: Z03.89 Encounter for observation for other suspected diseases and conditions ruled out (principal)

== ENCOUNTER 2023-08-27 14:51 | Emergency (ER) | payer MEDICAID, OTHER ==
[~2023-08-27] VITALS: Ht 172.7 cm; Wt 70.6 kg
[2023-08-27 14:52] VITALS: BP 121/64; TEMP 97.8; O2SAT 99
[2023-08-27] MEDS ORDERED: OLAN1TAB16 (15:06)
== END 2023-08-27 17:34 | disposition left against medical advice (07) ==
LOC: M ED 14:51
DX: Z53.21 Procedure and treatment not carried out due to patient leaving prior to being seen by health care provider (principal)

== ENCOUNTER 2023-08-31 07:06 | Emergency (ER) | payer OTHER ==
[~2023-08-31 07:06] MED LIST changes: +OLAN1TAB16
[2023-08-31] MEDS ORDERED: NAPR-837 PO (08:11)
[2023-08-31] MEDS ORDERED: METH-1165 PO (08:11)
[2023-08-31 08:24] VITALS: BP 128/88; TEMP 97.6; O2SAT 96
== END 2023-08-31 08:44 | disposition home or self-care (01) ==
LOC: M ED 07:06
DX: M62.830 Muscle spasm of back (principal); Z88.0 Allergy status to penicillin; Z79.899 Other long term (current) drug therapy; F25.9 Schizoaffective disorder, unspecified

== ENCOUNTER 2023-09-09 09:34 | Emergency (ER) | payer OTHER ==
[~2023-09-09] VITALS: Ht 172.7 cm; Wt 67.7 kg
[~2023-09-09 09:34] MED LIST changes: +METH-1165 PO; +NAPR-837 PO
[2023-09-09 09:35] VITALS: BP 132/69; TEMP 98; O2SAT 100
[2023-09-09] MEDS ORDERED: TRAZ1TAB11 (09:51)
== END 2023-09-09 10:10 | disposition left against medical advice (07) ==
LOC: M ED 09:34
DX: Z53.21 Procedure and treatment not carried out due to patient leaving prior to being seen by health care provider (principal)

== ENCOUNTER 2023-09-25 20:05 | Inpatient (IN) | payer OTHER ==
[~2023-09-25] VITALS: Ht 167.6 cm; Wt 69.7 kg
[~2023-09-25 20:05] MED LIST changes: -OLAN1TAB16; +TRAZ1TAB11 PO
[2023-09-25 21:57] LABS: HEMATOCRIT 39.6 % (42.0-52.0); HEMOGLOBIN 14.2 g/dl (13.5-17.5); MEAN CORPUSCULAR HEMOGLOBIN 30.5 pg (27.0-33.0); MEAN CORPUSCULAR HGB CONC 35.9 g/dl (32.0-36.5); MEAN CORPUSCULAR VOLUME 85.2 fl (80.0-96.0); PLATELET COUNT, AUTOMATED 341 10^3/uL (150-450); RED BLOOD COUNT 4.65 10^6/uL (4.30-6.10); WHITE BLOOD COUNT 12.6 10^3/uL (4.0-10.0)
[2023-09-25] MEDS ORDERED: METH-1165 PO (22:15)
[2023-09-25] MEDS ORDERED: LEXA5TAB13 PO (22:15)
[2023-09-25] MEDS ORDERED: ABIL400I IM (22:15)
[2023-09-25 22:20] LABS: AMPHETAMINES LEVEL URINE NEGATIVE (NEGATIVE); BARBITURATES URINE NEGATIVE (NEGATIVE); BENZODIAZEPINES URINE NEGATIVE (NEGATIVE); COCAINE METABOLITE URINE NEGATIVE (NEGATIVE); METHADONE URINE NEGATIVE (NEGATIVE); OPIATES URINE NEGATIVE (NEGATIVE); PHENCYCLIDINE URINE NEGATIVE (NEGATIVE)
[2023-09-25] MEDS ORDERED: HOME MED LIST COMPLETE! XX SCH (22:20)
[2023-09-25 22:23] LABS: ETHYL ALCOHOL (ETHANOL) 0.004 % (0.000-0.010)
[2023-09-25 22:25] LABS: ALBUMIN 4.3 G/DL (3.2-5.2); ALKALINE PHOSPHATASE 73 U/L (46-116); ALT/SGPT 34 U/L (7.0-40); AST/SGOT 23 U/L (<34); BILIRUBIN,DIRECT 0.2 MG/DL (<0.4); BILIRUBIN,TOTAL 0.7 MG/DL (0.3-1.2); BLOOD UREA NITROGEN 14 MG/DL (9-23); CALCIUM LEVEL 9.4 MG/DL (8.5-10.1); CARBON DIOXIDE LEVEL 22 MMOL/L (20-31); CHLORIDE LEVEL 110 MMOL/L (98-107); CREATININE FOR GFR 0.87 MG/DL (0.70-1.30); GLOMERULAR FILTRATION RATE > 60.0 (>60); GLUCOSE, FASTING 91 MG/DL (60-100); POTASSIUM SERUM 4.4 MMOL/L (3.5-5.1); SALICYLATE LEVEL < 3.0 MG/DL (<30); SODIUM LEVEL 139 MMOL/L (136-145); TOTAL PROTEIN 6.8 G/DL (5.7-8.2)
[2023-09-25 22:26] LABS: CANNABINOIDS URINE POSITIVE (NEGATIVE); THYROID STIMULATING HORMONE 2.374 uIU/ML (0.55-4.78)
[2023-09-26] MEDS ORDERED: LORazepam 1 MG TAB PO PRN (02:35)
[2023-09-26 04:50] VITALS: BP 134/66; TEMP 98.2; O2SAT 97
[2023-09-26] MEDS: SPIRONOLACTONE 50 MG TAB PO SCH (12:29)
[2023-09-26] MEDS: UNRESOLVED PATIENT OWN MED ORDER XX SCH (12:30)
[2023-09-26] MEDS: ESCITALOPRAM OXALATE 5MG TABLET (LEXAPRO) PO SCH (13:23)
[2023-09-26] MEDS: KETOCONAZOLE 2% CREAM TOP SCH (13:30)
[2023-09-26] MEDS ORDERED: HOME MED LIST COMPLETE! XX SCH (14:30)
[2023-09-26] MEDS: OLANZapine 5 MG TAB PO PRN (16:37)
[2023-09-26 18:32] VITALS: BP 125/70; TEMP 97.9; O2SAT 97
[2023-09-26] MEDS: NICOTINE 21MG/24HR 1 EA TRANSDERMAL TD PRN (18:41)
[2023-09-26] MEDS: methocarbamoL 750 MG TAB PO SCH (21:57)
[2023-09-26] MEDS: estradioL 1 MG TAB SL SCH (21:58)
[2023-09-26] MEDS: OLANZapine 5 MG TAB PO SCH (21:58)
[2023-09-27 06:55] VITALS: BP 132/59; TEMP 97.8; O2SAT 98
[2023-09-27 08:30] VITALS: BP 142/90; O2SAT 98
[2023-09-27] MEDS ORDERED: hydrOXYzine 50 MG TAB PO PRN (09:00)
[2023-09-27] MEDS: PROGESTERONE 100MG CAPSULE (PATIENT'S OWN MED) PO SCH (10:23)
[2023-09-27] MEDS: traZODone 50 MG TAB PO PRN (20:56)
[2023-09-29] MEDS: diphenhydrAMINE 25MG CAP PO PRN (21:26)
[2023-09-30] MEDS ORDERED: HYDR50TA70 PO (08:52)
== END 2023-09-30 10:29 | disposition home or self-care (01) | DRG 751 ==
LOC: M ED 20:05 → M ED INP 09-26 00:16 → M PSY 09-26 03:05
PROVIDERS: ADMIT Student in an Organized Health Care Education/Training Program; ATTEND Student in an Organized Health Care Education/Training Program
DX: F29 Unspecified psychosis not due to a substance or known physiological condition (principal); I30.0 Acute nonspecific idiopathic pericarditis; F25.9 Schizoaffective disorder, unspecified; Z91.119 Patient's noncompliance with dietary regimen due to unspecified reason; F31.9 Bipolar disorder, unspecified; F64.0 Transsexualism; Z79.899 Other long term (current) drug therapy; Z88.0 Allergy status to penicillin; F17.200 Nicotine dependence, unspecified, uncomplicated; F12.90 Cannabis use, unspecified, uncomplicated; D72.829 Elevated white blood cell count, unspecified; R21 Rash and other nonspecific skin eruption; F32.A Depression, unspecified

== ENCOUNTER 2023-11-06 20:26 | Inpatient (IN) | payer OTHER ==
[~2023-11-06] VITALS: Ht 170.2 cm; Wt 63.6 kg
[~2023-11-06 20:26] MED LIST changes: +LEXA5TAB13 PO; +PROG1CAP9 PO; +ZYPR10TA PO
[2023-11-06 21:31] LABS: HEMATOCRIT 36.5 % (36.0-47.0); HEMOGLOBIN 13.1 g/dl (12.0-15.5); MEAN CORPUSCULAR HEMOGLOBIN 30.4 pg (27.0-33.0); MEAN CORPUSCULAR HGB CONC 35.9 g/dl (32.0-36.5); MEAN CORPUSCULAR VOLUME 84.7 fl (80.0-96.0); PLATELET COUNT, AUTOMATED 362 10^3/uL (150-450); RED BLOOD COUNT 4.31 10^6/uL (4.00-5.40); WHITE BLOOD COUNT 12.6 10^3/uL (4.0-10.0)
[2023-11-06 21:51] LABS: AMPHETAMINES LEVEL URINE NEGATIVE (NEGATIVE); BARBITURATES URINE NEGATIVE (NEGATIVE); BENZODIAZEPINES URINE NEGATIVE (NEGATIVE); COCAINE METABOLITE URINE NEGATIVE (NEGATIVE); METHADONE URINE NEGATIVE (NEGATIVE); OPIATES URINE NEGATIVE (NEGATIVE); PHENCYCLIDINE URINE NEGATIVE (NEGATIVE)
[2023-11-06 21:53] LABS: CANNABINOIDS URINE POSITIVE (NEGATIVE); ETHYL ALCOHOL (ETHANOL) < 0.003 % (0.000-0.010)
[2023-11-06 21:55] LABS: ALKALINE PHOSPHATASE 62 U/L (46-116); ALT/SGPT 19 U/L (7.0-40); AST/SGOT 11 U/L (<34); BILIRUBIN,DIRECT 0.2 MG/DL (<0.4); BILIRUBIN,TOTAL 0.7 MG/DL (0.3-1.2); BLOOD UREA NITROGEN 11 MG/DL (9-23); CALCIUM LEVEL 9.5 MG/DL (8.5-10.1); CARBON DIOXIDE LEVEL 24 MMOL/L (20-31); CHLORIDE LEVEL 110 MMOL/L (98-107); CREATININE FOR GFR 0.95 MG/DL (0.55-1.30); GLOMERULAR FILTRATION RATE > 60.0 (>60); GLUCOSE, FASTING 110 MG/DL (60-100); POTASSIUM SERUM 3.9 MMOL/L (3.5-5.1); SALICYLATE LEVEL < 3.0 MG/DL (<30); SODIUM LEVEL 140 MMOL/L (136-145); TOTAL PROTEIN 6.8 G/DL (5.7-8.2)
[2023-11-06 21:57] LABS: THYROID STIMULATING HORMONE 1.072 uIU/ML (0.55-4.78)
[2023-11-07] MEDS: SPIRONOLACTONE 50 MG TAB PO SCH ×2 (07:51→20:35)
[2023-11-07] MEDS: estradioL 1 MG TAB PO SCH ×2 (07:51→20:35)
[2023-11-07 08:12] LABS: HCG, SERUM QUALITATIVE NEGATIVE (NEGATIVE)
[2023-11-07] MEDS ORDERED: ESTR2TAB3 PO (08:54)
[2023-11-07] MEDS ORDERED: HOME MED LIST COMPLETE! XX SCH (08:55)
[2023-11-07] MEDS ORDERED: estradioL 1 MG TAB PO SCH (09:00)
[2023-11-07] MEDS ORDERED: MOM 30ML SUSPENSION UDC PO PRN (11:30)
[2023-11-07] MEDS ORDERED: ACETAMINOPHEN TAB 650MG DOSE (2X325MG) PO PRN (11:30)
[2023-11-07] MEDS ORDERED: MAALOX 30 ML SUSP *UDC PO PRN (11:30)
[2023-11-07] MEDS ORDERED: IBUPROFEN 400MG TAB PO PRN (11:30)
[2023-11-07 16:26] VITALS: BP 126/58; TEMP 98; O2SAT 96
[2023-11-07] MEDS: NICOTINE 14 MG/24 HR TRANSDERMAL TD SCH (16:32)
[2023-11-07] MEDS: estradioL 1 MG TAB PO ONE (16:33)
[2023-11-07] MEDS: OLANZapine ORAL DISINTEGRATING TAB 5MG PO ONE (16:34)
[2023-11-07] MEDS: traZODone 50 MG TAB PO PRN (20:35)
[2023-11-08] MEDS: UNRESOLVED PATIENT OWN MED ORDER XX SCH (00:01)
[2023-11-08] MEDS: diphenhydrAMINE 25MG CAP PO PRN (02:35)
[2023-11-08] MEDS ORDERED: HYDR50TA70 PO (12:51)
[2023-11-08] MEDS ORDERED: OLAN5ZYD PO (13:00)
[2023-11-08] MEDS ORDERED: HOME MED LIST COMPLETE! XX SCH (13:00)
[2023-11-08] MEDS: OLANZapine 10 MG TAB PO SCH (21:04)
[2023-11-09] MEDS: OLANZapine ORAL DISINTEGRATING TAB 5MG PO PRN (10:35)
[2023-11-09 16:17] LABS: CHOLESTEROL RISK RATIO 3.66 (<5); LDL CHOLESTEROL 76.6 MG/DL (<100)
[2023-11-11] MEDS: OLANZapine 5 MG TAB PO SCH (21:00)
[2023-11-12] MEDS: PROGESTERONE 100 MG PO SCH (14:14)
[2023-11-14] MEDS: NICOTINE POLACRILEX 2 MG GUM PO PRN (10:29)
[2023-11-14 15:41] VITALS: BP 112/55; TEMP 97; O2SAT 97
[2023-11-18 06:58] VITALS: BP 142/75; TEMP 99; O2SAT 97
[2023-11-18] MEDS ORDERED: TRAZ1TAB11 PO (09:15)
[2023-11-18] MEDS ORDERED: ABIL400I IM (09:15)
[2023-11-18] MEDS ORDERED: OLAN5ZYD PO (09:15)
== END 2023-11-18 12:32 | disposition home or self-care (01) | DRG 750 ==
LOC: EDSEX 20:26 → M ED 20:26 → M ED INP 11-07 11:28 → MERGE 11-07 11:28 → M PSY 11-07 15:05
PROVIDERS: ADMIT Student in an Organized Health Care Education/Training Program; ATTEND Student in an Organized Health Care Education/Training Program
DX: F25.0 Schizoaffective disorder, bipolar type (principal); F12.90 Cannabis use, unspecified, uncomplicated; F64.9 Gender identity disorder, unspecified; F60.3 Borderline personality disorder; F17.200 Nicotine dependence, unspecified, uncomplicated; Z81.8 Family history of other mental and behavioral disorders; Z81.1 Family history of alcohol abuse and dependence; Z79.890 Hormone replacement therapy; Z79.899 Other long term (current) drug therapy; Z88.0 Allergy status to penicillin; Z56.0 Unemployment, unspecified; Z91.51 Personal history of suicidal behavior

== ENCOUNTER 2023-12-03 16:20 | Inpatient (IN) | payer MEDICAID, OTHER ==
[~2023-12-03 16:20] MED LIST changes: +ESTR2TAB3 PO; +OLAN5ZYD PO
[2023-12-03 17:35] LABS: HEMATOCRIT 38.1 % (42.0-52.0); HEMOGLOBIN 13.8 g/dl (13.5-17.5); MEAN CORPUSCULAR HEMOGLOBIN 30.4 pg (27.0-33.0); MEAN CORPUSCULAR HGB CONC 36.2 g/dl (32.0-36.5); MEAN CORPUSCULAR VOLUME 83.9 fl (80.0-96.0); PLATELET COUNT, AUTOMATED 362 10^3/uL (150-450); RED BLOOD COUNT 4.54 10^6/uL (4.30-6.10); WHITE BLOOD COUNT 19.9 10^3/uL (4.0-10.0)
[2023-12-03 17:38] LABS: AMPHETAMINES LEVEL URINE NEGATIVE (NEGATIVE); BARBITURATES URINE NEGATIVE (NEGATIVE); BENZODIAZEPINES URINE NEGATIVE (NEGATIVE); COCAINE METABOLITE URINE NEGATIVE (NEGATIVE)
[2023-12-03 17:39] LABS: METHADONE URINE NEGATIVE (NEGATIVE); OPIATES URINE NEGATIVE (NEGATIVE); PHENCYCLIDINE URINE NEGATIVE (NEGATIVE)
[2023-12-03 17:40] LABS: CANNABINOIDS URINE POSITIVE (NEGATIVE)
[2023-12-03 17:42] LABS: ETHYL ALCOHOL (ETHANOL) < 0.003 % (0.000-0.010)
[2023-12-03 17:43] LABS: ALBUMIN 4.2 G/DL (3.2-5.2); ALKALINE PHOSPHATASE 63 U/L (46-116); ALT/SGPT 19 U/L (7.0-40); AST/SGOT 9 U/L (<34); BILIRUBIN,DIRECT 0.3 MG/DL (<0.4); BILIRUBIN,TOTAL 0.8 MG/DL (0.3-1.2); BLOOD UREA NITROGEN 14 MG/DL (9-23); CALCIUM LEVEL 9.2 MG/DL (8.5-10.1); CARBON DIOXIDE LEVEL 25 MMOL/L (20-31); CHLORIDE LEVEL 108 MMOL/L (98-107); CREATININE FOR GFR 0.89 MG/DL (0.70-1.30); GLOMERULAR FILTRATION RATE > 60.0 (>60); GLUCOSE, FASTING 116 MG/DL (60-100); POTASSIUM SERUM 4.1 MMOL/L (3.5-5.1); SALICYLATE LEVEL < 3.0 MG/DL (<30); SODIUM LEVEL 139 MMOL/L (136-145); TOTAL PROTEIN 6.9 G/DL (5.7-8.2)
[2023-12-03 17:44] LABS: THYROID STIMULATING HORMONE 0.507 uIU/ML (0.55-4.78)
[2023-12-03] MEDS ORDERED: traZODone 50 MG TAB PO PRN (18:20)
[2023-12-03] MEDS ORDERED: hydrOXYzine 50 MG TAB PO PRN (18:20)
[2023-12-03] MEDS ORDERED: OLANZapine ORAL DISINTEGRATING TAB 5MG PO PRN (18:30)
[2023-12-03] MEDS ORDERED: MAALOX 30 ML SUSP *UDC PO PRN (20:05)
[2023-12-03] MEDS ORDERED: ACETAMINOPHEN TAB 650MG DOSE (2X325MG) PO PRN (20:05)
[2023-12-03] MEDS ORDERED: IBUPROFEN 400MG TAB PO PRN (20:05)
[2023-12-03] MEDS ORDERED: MOM 30ML SUSPENSION UDC PO PRN (20:05)
[2023-12-03] MEDS: SPIRONOLACTONE 50 MG TAB PO SCH (20:06)
[2023-12-03] MEDS: estradioL 1 MG TAB PO SCH (20:06)
[2023-12-03 23:32] LABS: BASO # 0.1 10^3/uL (0.0-0.2); BASO % 0.5 % (0.0-1.0); EOS % 0.2 % (0.0-3.0); LYMPH # 2.3 10^3/uL (1.5-5.0); LYMPH % 11.9 % (24.0-44.0); MONO # 1.2 10^3/uL (0.0-0.8); MONO % 6.2 % (2.0-8.0); NEUTROPHILS # 15.7 10^3/uL (1.5-8.5); NEUTROPHILS % 80.8 % (36.0-66.0)
[2023-12-03 23:41] LABS: PROCALCITONIN <0.04 ng/ml
[2023-12-04 00:05] LABS: AMORPHOUS SEDIMENT SMALL (NEGATIVE); APPEARANCE, URINE TURBID (CLEAR); BACTERIA, URINE AUTO 1+ (NEGATIVE); BILIRUBIN, URINE AUTO NEGATIVE (NEGATIVE); BLOOD, URINE BLOOD NEGATIVE (NEGATIVE); COLOR, URINE YELLOW (YELLOW); GLUCOSE, URINE (UA) AUTO NEGATIVE (NEGATIVE); KETONE, URINE AUTO NEGATIVE (NEGATIVE); LEUKOCYTE ESTERASE, URINE AUTO NEGATIVE (NEGATIVE); MUCUS, URINE SMALL (NEGATIVE); NITRITE, URINE AUTO NEGATIVE (NEGATIVE); PROTEIN, URINE AUTO NEGATIVE (NEGATIVE); RBC, URINE AUTO 0 /HPF (0-3); SPECIFIC GRAVITY URINE AUTO 1.021 (1.002-1.035); SQUAMOUS EPITHELIAL CELL UR AU 2 /HPF (0-6); UROBILINOGEN, URINE AUTO 0.2 mg/dL (0.0-2.0); WBC, URINE AUTO 0 /HPF (0-3)
[2023-12-04 00:34] VITALS: BP 126/69; TEMP 97.2; O2SAT 98
[2023-12-04] MEDS: NICOTINE 21MG/24HR 1 EA TRANSDERMAL TD PRN (01:27)
[2023-12-04] MEDS ORDERED: HOME MED LIST COMPLETE! XX SCH (08:15)
[2023-12-04] MEDS ORDERED: ESCITALOPRAM OXALATE 5MG TABLET (LEXAPRO) PO SCH (09:00)
[2023-12-04] MEDS ORDERED: NICOTINE 21MG/24HR 1 EA TRANSDERMAL TD SCH (09:00)
[2023-12-04] MEDS: LITHIUM CARBONATE 150 MG CAP PO SCH (10:27)
[2023-12-04] MEDS: NICOTINE POLACRILEX 2 MG GUM PO PRN (11:49)
[2023-12-04] MEDS: traZODone 50 MG TAB PO PRN (21:53)
[2023-12-04] MEDS: PALIPERIDONE 3MG ER TAB (INVEGA) PO SCH (21:53)
[2023-12-05] MEDS ORDERED: hydrOXYzine 50 MG TAB PO PRN (09:10)
[2023-12-05] MEDS: estradioL 1 MG TAB SL SCH (10:22)
[2023-12-05] MEDS: PALIPERIDONE PAL 234MG/1.5ML INJ (INVEGA)(FREE PSY INPT ONLY) IM ONE (10:22)
[2023-12-05] MEDS: SPIRONOLACTONE 50 MG TAB PO SCH (10:23)
[2023-12-05 18:29] VITALS: BP 110/58; TEMP 98; O2SAT 98
[2023-12-06 07:22] LABS: HEMATOCRIT 36.7 % (42.0-52.0); MEAN CORPUSCULAR HEMOGLOBIN 30.1 pg (27.0-33.0); MEAN CORPUSCULAR HGB CONC 35.4 g/dl (32.0-36.5); PLATELET COUNT, AUTOMATED 281 10^3/uL (150-450); RED BLOOD COUNT 4.32 10^6/uL (4.30-6.10)
[2023-12-06 07:47] LABS: CHOLESTEROL RISK RATIO 3.28 (<5); HDL CHOLESTEROL 40.8 MG/DL (>40); LDL CHOLESTEROL 81.6 MG/DL (<100); NON-HDL-C 93.2 MG/DL
[2023-12-06 07:52] LABS: FREE T4 1.08 NG/DL (0.89-1.76); THYROID STIMULATING HORMONE 1.688 uIU/ML (0.55-4.78)
[2023-12-06] MEDS: PROGESTERONE 100MG CAPSULE (PATIENT'S OWN MED) PO SCH (11:46)
[2023-12-07 17:30] VITALS: BP 126/62; TEMP 97.4; O2SAT 97
[2023-12-09 06:17] VITALS: BP 124/65; TEMP 97.9; O2SAT 97
[2023-12-09] MEDS ORDERED: PALIPERIDONE PAL 156MG/1ML INJ(INVEGA)(FREE PSY INPT ONLY) IM ONE (09:05)
[2023-12-09] MEDS: PALIPERIDONE PAL 156MG/1ML INJ(INVEGA)(FREE PSY INPT ONLY) IM ONE (18:05)
[2023-12-09] MEDS: NICOTINE POLACRILEX 2 MG GUM PO PRN (19:53)
[2023-12-09] MEDS: diphenhydrAMINE 25MG CAP PO PRN (20:07)
[2023-12-11] MEDS: OLANZapine ORAL DISINTEGRATING TAB 5MG PO PRN (04:45)
[2023-12-12 18:16] VITALS: BP 132/75; TEMP 97.7; O2SAT 98
[2023-12-13] MEDS ORDERED: INVE156I IM (08:48)
== END 2023-12-13 09:50 | disposition home or self-care (01) | DRG 750 ==
LOC: M ED 16:20 → M ED INP 20:04 → M PSY 12-04 00:34
PROVIDERS: ADMIT Student in an Organized Health Care Education/Training Program; ATTEND Psychiatry & Neurology Child & Adolescent Psychiatry
DX: F25.0 Schizoaffective disorder, bipolar type (principal); F64.9 Gender identity disorder, unspecified; F12.10 Cannabis abuse, uncomplicated; F17.210 Nicotine dependence, cigarettes, uncomplicated; Z79.899 Other long term (current) drug therapy; Z88.0 Allergy status to penicillin

== ENCOUNTER → 2025-01-08 | Outpatient (CLI) | payer MEDICAID, OTHER ==
[~2025-01-08] MED LIST changes: -ABIL400I IM; +ARIP400S IM; -IBUP-1022 PO; +IBUP600T42 PO; +INVE156I IM
== END ==
LOC: M SOG 07:22
PROVIDERS: ATTEND Physician Assistant
DX: M25.511 Pain in right shoulder (principal); Z53.9 Procedure and treatment not carried out, unspecified reason

== ENCOUNTER → 2025-01-21 | Outpatient (CLI) | payer MEDICAID, OTHER | LOC: M SOG 07:20 | PROVIDERS: ATTEND Physician Assistant | DX: M25.511 Pain in right shoulder (principal); Z53.9 Procedure and treatment not carried out, unspecified reason ==

== ENCOUNTER 2025-02-14 15:11 | Emergency (ER) | payer MEDICAID, OTHER ==
[~2025-02-14] VITALS: Ht 170.2 cm; Wt 61.7 kg
[2025-02-14 15:15] VITALS: BP 115/57; TEMP 97.2; O2SAT 100
[2025-02-14] MEDS ORDERED: LITH150C (15:21)
[2025-02-14 16:30] LABS: HEPATITIS B SURFACE ANTIBODY POSITIVE (POSITIVE)
[2025-02-14 16:55] LABS: HIV 1&2 SCREEN NEGATIVE (NEGATIVE)
[2025-02-14 17:00] LABS: Trichomonas vaginalis (AMP) NOT DETECTED (NEGATIVE)
[2025-02-14 17:03] LABS: HEPATITIS C VIRUS ABY INDEX 0.02 INDEX (<0.8)
[2025-02-14 17:24] LABS: GC DNA AMPLIFICATION NEGATIVE (NEGATIVE)
== END 2025-02-14 19:43 | disposition home or self-care (01) ==
LOC: M ED 15:11
DX: Z11.3 Encounter for screening for infections with a predominantly sexual mode of transmission (principal); F17.200 Nicotine dependence, unspecified, uncomplicated; Z88.0 Allergy status to penicillin

== ENCOUNTER → 2025-02-24 | Outpatient (CLI) | payer OTHER ==
[~2025-02-24] MED LIST changes: +LITH150C
== END ==
LOC: M OUTALCOH 09:27
PROVIDERS: ATTEND Psychiatry & Neurology Psychiatry
DX: F12.20 Cannabis dependence, uncomplicated (principal); F17.200 Nicotine dependence, unspecified, uncomplicated

== ENCOUNTER 2025-02-27 00:06 | Inpatient (IN) | payer OTHER ==
[~2025-02-27] VITALS: Ht 170.2 cm; Wt 65.3 kg
[~2025-02-27 00:06] MED LIST changes: -LITH150C; +LITH150C PO
[2025-02-27 00:41] LABS: PLATELET COUNT, AUTOMATED 410 10^3/uL (150-450)
[2025-02-27 01:09] LABS: ETHYL ALCOHOL (ETHANOL) < 0.003 % (0.000-0.010)
[2025-02-27 01:10] LABS: SALICYLATE LEVEL < 3.0 MG/DL (<30)
[2025-02-27 01:11] LABS: ALT/SGPT 17 U/L (7.0-40); AST/SGOT 20 U/L (<34); CALCIUM LEVEL 9.0 MG/DL (8.5-10.1); CARBON DIOXIDE LEVEL 25 MMOL/L (20-31); CHLORIDE LEVEL 105 MMOL/L (98-107); CREATININE FOR GFR 0.87 MG/DL (0.70-1.30); GLOMERULAR FILTRATION RATE > 90.0 (>60); POTASSIUM SERUM 4.2 MMOL/L (3.5-5.1); SODIUM LEVEL 140 MMOL/L (136-145)
[2025-02-27 01:20] LABS: AMPHETAMINES LEVEL URINE NEGATIVE (NEGATIVE)
[2025-02-27 01:21] LABS: BARBITURATES URINE NEGATIVE (NEGATIVE); BENZODIAZEPINES URINE NEGATIVE (NEGATIVE); COCAINE METABOLITE URINE NEGATIVE (NEGATIVE); METHADONE URINE NEGATIVE (NEGATIVE); OPIATES URINE NEGATIVE (NEGATIVE); PHENCYCLIDINE URINE NEGATIVE (NEGATIVE)
[2025-02-27 01:22] LABS: CANNABINOIDS URINE POSITIVE (NEGATIVE)
[2025-02-27] MEDS ORDERED: HOME MED LIST COMPLETE! XX SCH (06:05)
[2025-02-27] MEDS ORDERED: IBUPROFEN 400 MG TAB PO PRN (10:30)
[2025-02-27] MEDS ORDERED: MOM 30 ML SUSPENSION UDC PO PRN (10:30)
[2025-02-27] MEDS ORDERED: MAALOX 30 ML SUSP *UDC PO PRN (10:30)
[2025-02-27] MEDS ORDERED: ACETAMINOPHEN 325 MG TAB PO PRN (10:30)
[2025-02-27] MEDS ORDERED: NICOTINE 14 MG/24 HR TRANSDERMAL TD PRN (10:30)
[2025-02-27 14:09] VITALS: BP 118/62; TEMP 98.2; O2SAT 99
[2025-02-27] MEDS: NICOTINE POLACRILEX 2 MG GUM PO PRN (18:29)
[2025-02-27] MEDS: OLANZapine 5 MG TAB PO PRN (21:56)
[2025-02-27] MEDS: traZODone 50 MG TAB PO PRN (21:56)
[2025-02-28 09:14] LABS: BASO # 0.1 10^3/uL (0.0-0.2); BASO % 0.9 % (0.0-1.0); EOS # 0.1 10^3/uL (0.0-0.5); EOS % 0.8 % (0.0-3.0); LYMPH # 2.5 10^3/uL (1.5-5.0); LYMPH % 26.6 % (24.0-44.0); MONO # 0.8 10^3/uL (0.0-0.8); MONO % 8.4 % (2.0-8.0); NEUTROPHILS # 6.0 10^3/uL (1.5-8.5); NEUTROPHILS % 63.0 % (36.0-66.0); PLATELET COUNT, AUTOMATED 426 10^3/uL (150-450)
[2025-02-28 14:41] VITALS: BP 118/61; TEMP 97.8; O2SAT 97
[2025-02-28] MEDS: FLUZONE VACCINE TRI PF(25-26) 0.5ML SYRINGE IM.IMMUN ONE (16:17)
[2025-02-28] MEDS: LITHIUM CARBONATE **ER** 300 MG PO SCH (20:13)
[2025-03-01 09:43] LABS: KETONE, URINE AUTO RFX NEGATIVE (NEGATIVE); LEUKOCYTE ESTERASE UR AUTO RFX NEGATIVE (NEGATIVE); MUCUS, URINE RFX SMALL (NEGATIVE); NITRITE, URINE AUTO RFX NEGATIVE (NEGATIVE); RBC, URINE AUTO RFX 2 /HPF (0-3); SQUAM EPITHELIAL CELL UR AURFX 0 /HPF (0-6); WBC, URINE AUTO RFX 2 /HPF (0-3)
[2025-03-01] MEDS: OLANZapine 5 MG TAB PO SCH (20:30)
[2025-03-02] MEDS: HALOPERIDOL 5 MG TAB PO PRN (10:11)
[2025-03-03] MEDS: LORazepam 1 MG TAB PO PRN (20:04)
[2025-03-05 15:40] VITALS: BP 139/61; TEMP 98; O2SAT 98
[2025-03-08] MEDS ORDERED: LITH1TAB PO (09:38)
[2025-03-08] MEDS ORDERED: OLAN1TAB16 PO (09:38)
== END 2025-03-08 10:45 | disposition home or self-care (01) | DRG 750 ==
LOC: M ED 00:06 → M ED INP 10:30 → M PSY 14:10
PROVIDERS: ADMIT Internal Medicine; ATTEND Psychiatry & Neurology Psychiatry
DX: F25.0 Schizoaffective disorder, bipolar type (principal); R45.851 Suicidal ideations; F41.9 Anxiety disorder, unspecified; F19.11 Other psychoactive substance abuse, in remission; F12.10 Cannabis abuse, uncomplicated; Z91.51 Personal history of suicidal behavior; Z56.0 Unemployment, unspecified; Z88.0 Allergy status to penicillin; Z79.899 Other long term (current) drug therapy; Z91.52 Personal history of nonsuicidal self-harm

== ENCOUNTER 2025-03-18 11:15 | Outpatient (RCR) | payer OTHER ==
[~2025-03-18 11:15] MED LIST changes: +LITH1TAB PO
[2025-04-30] MEDS ORDERED: OLAN1TAB16 PO (13:37)
[2025-04-30] MEDS ORDERED: LITH1TAB PO (13:37)
[2025-05-07] MEDS ORDERED: PALI1TAB2 PO (08:37)
[2025-05-07] MEDS ORDERED: TRAZ-252 PO (08:37)
[2025-05-07] MEDS ORDERED: LITH1TAB PO (08:37)
== END 2025-04-11 ==
LOC: M OUTALCOH 11:15
PROVIDERS: ATTEND Psychiatry & Neurology Psychiatry
DX: F12.20 Cannabis dependence, uncomplicated (principal); F17.200 Nicotine dependence, unspecified, uncomplicated; F25.0 Schizoaffective disorder, bipolar type; F64.1 Dual role transvestism; Z65.8 Other specified problems related to psychosocial circumstances